=== PATIENT | male | born 1970 | race Caucasian/White ===

== ENCOUNTER → 2018-07-26 | Outpatient (CLI) | payer BC ==
[2018-07-26 12:13] LABS: ALT 64 U/L (21-72); AST 59 U/L (17-59); Albumin 4.7 g/dL (3.5-5.0); Albumin/Globulin Ratio 1.5; Alkaline Phosphatase 79 U/L (38-126); Amylase 32 U/L (30-110); Anion Gap 7 mmol/L; Blood Urea Nitrogen 16 mg/dL (9-20); Carbon Dioxide 29 mmol/L (22-30); Chloride 102 mmol/L (98-107); Creatine Kinase 236 U/L (55-170); Globulin 3.2 g/dL; Glucose 96 mg/dL (74-99); Lipase 54 U/L (23-300); Potassium 4.5 mmol/L (3.5-5.1); Sodium 138 mmol/L (137-145); Total Bilirubin 1.2 mg/dL (0.2-1.3); Total Protein 7.9 g/dL (6.3-8.2)
[2018-07-26 12:15] LABS: Basophils # (A) 0.1 k/uL (0-0.2); Basophils % (A) 1 %; Eosinophils # (A) 0.4 k/uL (0-0.7); Eosinophils % (A) 5 %; HGB 16.4 gm/dL (13.0-17.5); Lymphocytes # (A) 1.6 k/uL (1.0-4.8); Lymphocytes % (A) 21 %; MCH 30.7 pg (25.0-35.0); MCHC 33.4 g/dL (31.0-37.0); MCV 91.9 fL (80.0-100.0); Mean Platelet Volume 7.5; Monocytes # (A) 0.6 k/uL (0-1.0); Monocytes % (A) 8 %; Neutrophils # (A) 5.1 k/uL (1.3-7.7); Neutrophils % (A) 65 %; Platelet Count 201 k/uL (150-450); RBC 5.32 m/uL (4.30-5.90); RDW 13.4 % (11.5-15.5); WBC 7.8 k/uL (3.8-10.6)
[2018-07-26 12:38] LABS: Creatine Kinase MB 2.4 ng/mL (0.0-2.4); Troponin I <0.012 ng/mL (0.000-0.034)
[2018-07-26 14:38] LABS: Erythrocyte Sedimentation Rate 10 mm/hr (0-15)
[2018-07-27 05:30] LABS: Mycoplasma IgM Antibody 0.9 INDEX (<=0.90)
== END | disposition home or self-care (01) ==
LOC: LABWHC1 11:15
PROVIDERS: ATTEND Physician Assistant
DX: R10.9 Unspecified abdominal pain (principal); R07.89 Other chest pain
CPT/HCPCS: 36415; 80053; 82150; 82550; 82553; 83690; 84484; 85025; 85652; 86738

== ENCOUNTER → 2018-08-17 | Outpatient (CLI) | payer BC ==
--- NOTE | 2018-08-17 12:14 | P.STRESS ---
- Stress Test Note Stress Test Results/Findings: Exam Performed: stress test Exam Date: 08/17/18 Reason for Exam: CHEST PAIN, FATIGUE Height: 5 ft 10 in Weight: 103.419 kg Protocol: MARIO Stage: IV Duration of Exercise: 9:41 Resting Heart Rate: 77 Resting Blood Pressure: 123/82 Maximum Achieved Heart Rate: 155 Maximum Achieved Blood Pressure: 188/75 85% PMHR: 145 100% PMHR: 170 METS: 11.3 Technologist Comment: Stress Test Results/Findings: This is a 48-year-old gentleman with a hypertension, smoking, family history of ischemic heart disease being evaluated for symptoms of chest pain and shortness of breath and also palpitations.. Stress data: Baseline EKG showed a sinus rhythm with normal RI interval and QRS duration. Blood pressure at rest is 123/82 with pulse rate of 77. Patient awoke on the Mario protocol for 9 minutes and 41 seconds achieving a maximal heart rate of 155 with a blood pressure 179/64. EKGs taken during and after the exercise did not reveal any significant changes from the baseline occasional PVCs continued. Final impression: #1. Negative stress test #2 patient did not express any chest pain #3. Occasional PVCs were noted. #4. Patient exercise capacity is good
--- NOTE | 2018-08-20 17:26 | EST ---
Stress Test Results/Findings: Exam Performed: stress test Exam Date: 08/17/18 Reason for Exam: CHEST PAIN, FATIGUE Height: 5 ft 10 in Weight: 103.419 kg Protocol: MARIO Stage: IV Duration of Exercise: 9:41 Resting Heart Rate: 77 Resting Blood Pressure: 123/82 Maximum Achieved Heart Rate: 155 Maximum Achieved Blood Pressure: 188/75 85% PMHR: 145 100% PMHR: 170 METS: 11.3 Technologist Comment: Stress Test Results/Findings: This is a 48-year-old gentleman with a hypertension, smoking, family history of ischemic heart disease being evaluated for symptoms of chest pain and shortness of breath and also palpitations.. Stress data: Baseline EKG showed a sinus rhythm with normal ND interval and QRS duration. Blood pressure at rest is 123/82 with pulse rate of 77. Patient awoke on the Mario protocol for 9 minutes and 41 seconds achieving a maximal heart rate of 155 with a blood pressure 179/64. EKGs taken during and after the exercise did not reveal any significant changes from the baseline occasional PVCs continued. Final impression: #1. Negative stress test #2 patient did not express any chest pain #3. Occasional PVCs were noted. #4. Patient exercise capacity is good MTDD
== END ==
LOC: RADNMMAIN 08:36
PROVIDERS: ATTEND Physician Assistant
DX: R53.83 Other fatigue (principal)
CPT/HCPCS: 93017

== ENCOUNTER → 2019-09-17 | Outpatient (CLI) | payer BC | END | disposition home or self-care (01) | LOC: LABWHC1 07:26 | PROVIDERS: ATTEND Family Medicine | DX: R50.9 Fever, unspecified (principal); R06.02 Shortness of breath; R43.9 Unspecified disturbances of smell and taste; Z20.828 Contact with and (suspected) exposure to other viral communicable diseases | CPT/HCPCS: 87635 ==

== ENCOUNTER → 2020-02-07 | Outpatient (CLI) | payer BC ==
--- NOTE | 2020-02-07 12:25 | CT ---
EXAMINATION TYPE: CT abdomen wo con DATE OF EXAM: 02/07/2020 HISTORY: wt loss, dysphagia, abdominal pain. CT DLP: 555.3 mGycm. Automated Exposure Control for Dose Reduction was Utilized. TECHNIQUE: CT scan of the abdomen is performed with oral and without IV contrast. COMPARISON: NONE FINDINGS: Within the limitations of a non-contrast study, the following observations are made. LUNG BASES: No significant abnormality is appreciated. LIVER/GB: Contracted gallbladder. Visualized liver is slightly hypodense relative to spleen consisten t with mild diffuse fatty infiltration. PANCREAS: No significant abnormality is seen. SPLEEN: Splenomegaly present measuring 16.1 cm long axis segment 14. ADRENALS: No significant abnormality is seen. KIDNEYS: There is 2 mm nonobstructing left renal calculus mid to lower pole level coronal image 71. N o hydronephrosis or obstructing ureteral calculi identified bilaterally. BOWEL: Oral contrast only reaches distal jejunal loops in the left abdomen. No suspicious small or la rge bowel dilatation. Terminal ileum felt within normal limits coronal Image 55. Appendix not seen an d presumed surgically absent. LYMPH NODES: No greater than 1cm abdominal lymph nodes are appreciated. OSSEOUS STRUCTURES: Bilateral pars defect L5 level. No significant spondylolisthesis. Moderate disc s pace narrowing at this level is partially imaged. Facet arthropathy lower lumbar spine. OTHER: Tiny fat-containing umbilical hernia. IMPRESSION: No acute findings are evident. Splenomegaly noted and may warrant further nonurgent clini shellie workup.
== END | disposition home or self-care (01) ==
LOC: RADCTMAIN 11:23
PROVIDERS: ATTEND Family Medicine
DX: R16.1 Splenomegaly, not elsewhere classified (principal)
CPT/HCPCS: 74150

== ENCOUNTER 2020-03-02 10:29 | Day surgery (SDC) | payer BC ==
[2020-02-27 14:48] VITALS: BMI 30.8
[~2020-03-02 10:29] MED LIST: LACTATED RINGERS 1,000 ML IV SCH
[2020-03-02 11:18] VITALS: TEMP 97.9
[2020-03-02] MEDS ORDERED: PROPOFOL 10 MG/ML 20 ML VIAL IV ONE (12:01)
[2020-03-02] MEDS ORDERED: LIDOCAINE 1% INJ 10MG/ML (20 ML MDV) ONE (12:01)
--- NOTE | 2020-03-02 12:54 | P.PCN ---
Date of Procedure: 03/02/20 Description of Procedure: Brief history: Patient is a pleasant 49-year-old male presenting for EGD and colonoscopy for evaluation of left upper quadrant pain and diarrhea. Prior endoscopic history. To 3 months of left upper quadrant pain with associated decreased oral intake, weight loss and nausea. He also reports loose frequent bowel movements. Computed tomography scan significant for splenomegaly on 02/07/2020 Procedure performed: Esophagogastroduodenoscopy with biopsy Colonoscopy with biopsy and polypectomy Estimated blood loss: Minimal. Preoperative diagnosis: Left upper quadrant pain, diarrhea, altered bowel function, unintentional weight loss, no prior endoscopic history Anesthesia: MAC Procedure: After informed consent was obtained from the patient was brought into the endoscopy unit and IV sedation was administered by anesthesia under continuous monitoring. Initially upper endoscopy was done. The Olympus GF 190 video endoscope was inserted into the mouth and esophagus intubated without any difficulty and was gradually advanced into the stomach and duodenum and carefully examined. The bulb and second part of the duodenum appeared normal, with biopsies taken to rule out celiac disease. The scope was then withdrawn into the stomach adequately insufflated with air and upon careful examination the antrum and body, cardia and fundus appeared normal, except for some mild punctate erythema and body suggestive of mild gastritis with biopsies taken. The scope was then withdrawn into the esophagus. The GE junction was located at 40 cm to the incisors and biopsied to rule out reflux esophagitis. It appeared regular with no erythema erosions or ulcerations. Rest of the esophagus appeared normal. Patient tolerated the procedure well. At this time the patient continued to remain sedation. Initial digital rectal examination was normal. Olympus CF 190 video colonoscope was then inserted into the rectum and gradually advanced to the cecum without any difficulty. Careful examination was performed as the scope was gradually being withdrawn. The prep was excellent. The cecum, ascending colon, transverse colon, descending colon, sigmoid colon and rectum appeared normal, with random biopsies taken of the right and left colon the setting of diarrhea and altered bowel function. Terminal ileum was intubated and appeared normal with biopsies take. Low-grade internal hemorrhoids were seen. Diminutive polyps measuring 2-3 mm in size were removed from the transverse colon, splenic flexure and descending colon Retroflexion was performed in the rectum and no lesions were noted. Patient tolerated the procedure well. Impression: 1. Mild gastritis. Biopsies taken of the duodenum, antrum and body and GE junction. 2. 3 diminutive polyps removed from the transverse colon, splenic flexure and descending colon with cold forcep polypectomy. Otherwise normal-appearing colon from rectum to cecum with random biopsies taken of the right and left colon as well as a normal-appearing terminal ileum due to diarrhea and altered bowel fun ction. Internal hemorrhoids. Recommendations: Findings of this examination were discussed with the patient as well as his . Okay to resume diet. Okay to resume medications. With pathology from biopsies and polypectomy. Recommend repeat colonoscopy in 5 years for screening for malignant neoplasm of the colon in the setting of polypectomy pending pathology from polypectomies. Patient should follow-up in the GI clinic in the next 1-2 weeks for results of biopsies and further management.
[2020-03-02 13:33] VITALS: BP 132/76; PULSE 70; RESP 20
== END 2020-03-02 13:36 | disposition home or self-care (01) ==
LOC: ORWHC2ENDO 10:29
PROVIDERS: ATTEND Internal Medicine
DX: D12.3 Benign neoplasm of transverse colon (principal); K63.5 Polyp of colon; D12.4 Benign neoplasm of descending colon; K29.50 Unspecified chronic gastritis without bleeding; K22.70 Barrett's esophagus without dysplasia; R63.4 Abnormal weight loss; K64.8 Other hemorrhoids; Z98.890 Other specified postprocedural states; F17.210 Nicotine dependence, cigarettes, uncomplicated; R16.1 Splenomegaly, not elsewhere classified; Z88.1 Allergy status to other antibiotic agents
CPT/HCPCS: 88305; 45380; 43239; J2001; J2704

== ENCOUNTER 2020-03-23 11:22 | Emergency (ER) | payer BC, OTHER ==
[2020-03-23 11:28] VITALS: TEMP 98.8
[2020-03-23] MEDS ORDERED: IPRATROPIUM-ALBUTEROL 3 ML NEB INHALATION STA ×2 (12:19→13:42)
[2020-03-23 12:21] LABS: Basophils # (A) 0.1 k/uL (0-0.2); Basophils % (A) 1 %; Eosinophils # (A) 0.4 k/uL (0-0.7); Eosinophils % (A) 5 %; HCT 49.4 % (39.0-53.0); HGB 17.3 gm/dL (13.0-17.5); Lymphocytes # (A) 1.9 k/uL (1.0-4.8); Lymphocytes % (A) 24 %; MCH 32.8 pg (25.0-35.0); MCHC 35.1 g/dL (31.0-37.0); MCV 93.3 fL (80.0-100.0); Mean Platelet Volume 8.4; Monocytes # (A) 0.4 k/uL (0-1.0); Monocytes % (A) 5 %; Neutrophils # (A) 4.8 k/uL (1.3-7.7); Neutrophils % (A) 63 %; Platelet Count 175 k/uL (150-450); RBC 5.29 m/uL (4.30-5.90); RDW 12.6 % (11.5-15.5); WBC 7.7 k/uL (3.8-10.6)
[2020-03-23 12:33] LABS: ALT 83 U/L (4-49); AST 59 U/L (17-59); African American GFR (CKD) >90 (>60 ml/min/1.73 sqM); Albumin 4.3 g/dL (3.5-5.0); Alkaline Phosphatase 72 U/L (38-126); Anion Gap 7 mmol/L; Blood Urea Nitrogen 16 mg/dL (9-20); Calcium 9.5 mg/dL (8.4-10.2); Carbon Dioxide 26 mmol/L (22-30); Chloride 104 mmol/L (98-107); Glucose 86 mg/dL (74-99); Non-African American GFR(CKD) >90 (>60 ml/min/1.73 sqM); Potassium 4.2 mmol/L (3.5-5.1); Sodium 137 mmol/L (137-145); Total Bilirubin 1.2 mg/dL (0.2-1.3); Total Protein 7.3 g/dL (6.3-8.2)
--- NOTE | 2020-03-23 12:38 | XR ---
EXAMINATION TYPE: XR chest 2V DATE OF EXAM: 03/23/2020 COMPARISON: NONE HISTORY: Shortness of breath TECHNIQUE: Frontal and lateral views of the chest are obtained. FINDINGS: Scattered senescent parenchymal changes noted. Hyperinflation compatible with COPD. No evidence for infiltrate. No evidence for atelectasis. Heart size is stable. Mediastinal structures are stable and grossly unremarkable. No evidence for hilar prominence. Degenerative changes dorsal spine. IMPRESSION: 1. No evidence for acute pulmonary disease.
[2020-03-23 12:48] LABS: INR 0.9 (<1.2); Partial Thromboplastin Time 25.1 sec (22.0-30.0); Prothrombin Time 9.4 sec (9.0-12.0)
--- NOTE | 2020-03-23 12:55 | ED ---
General Adult HPI - General Chief complaint: Shortness of Breath Stated complaint: SOB Time Seen by Provider: 03/23/20 11:47 Source: patient, RN notes reviewed Mode of arrival: ambulatory Limitations: no limitations - History of Present Illness Initial comments: 49-year-old male with a past medical history of shoulder surgery on Monday presents to the emergency room for a chief complaint of shortness of breath. Patient reports ever since his shoulder surgery 4 days ago he has had wheezing and a cough that has caused him to be short of breath. He does have slight mucus production with this cough. He tested negative for Covid on Monday before the surgery. He has not had any fevers. He does not have a history of asthma or COPD. He does not have any chest pain. Patient has no other complaints at this time including chest pain, abdominal pain, nausea or vomiting, headache, or visual changes. - Related Data Home Medications Medication Instructions Recorded Confirmed Acetaminophen Tab [Tylenol Tab] 1,000 mg PO Q8H PRN 03/23/20 03/23/20 Aspirin EC [Ecotrin Low Dose] 81 mg PO DAILY 03/23/20 03/23/20 Gabapentin 300 mg PO Q8H 03/23/20 03/23/20 Meloxicam [Mobic] 7.5 mg PO DAILY 03/23/20 03/23/20 oxyCODONE HCL [Roxicodone] 5 mg PO Q6H PRN 03/23/20 03/23/20 traMADol HCl [Ultram] 50 mg PO Q6H PRN 03/23/20 03/23/20 Previous Rx's Medication Instructions Recorded Albuterol Inhaler [Ventolin Hfa 2 puff INHALATION RT-QID PRN #1 03/23/20 Inhaler] inhaler Amoxicillin/Potassium Clav 1 tab PO Q12HR #20 tab 03/23/20 [Augmentin 875-125 Tablet] Levofloxacin [Levaquin] 750 mg PO DAILY 10 Days #10 tab 03/23/20 Allergies Allergy/AdvReac Type Severity Reaction Status Date / Time erythromycin base Allergy throat Verified 03/23/20 12:46 Swelling Review of Systems ROS Statement: Those systems with pertinent positive or pertinent negative responses have been documented in the HPI. ROS Other: All systems not noted in ROS Statement are negative. Past Medical History Additional Past Medical History / Comment(s): past hx of HTN, abdominal pain, diarrhea, enlarged spleen History of Any Multi-Drug Resistant Organisms: None Reported Past Surgical History: Appendectomy Additional Past Surgical History / Comment(s): EGD Past Anesthesia/Blood Transfusion Reactions: No Reported Reaction Past Psychological History: No Psychological Hx Reported Smoking Status: Current every day smoker Past Alcohol Use History: None Reported Past Drug Use History: None Reported General Exam Limitations: no limitations General appearance: alert, in no apparent distress Head exam: Present: atraumatic, normocephalic, normal inspection Eye exam: Present: normal appearance, PERRL, EOMI. Absent: scleral icterus, conjunctival injection, periorbital swelling ENT exam: Present: normal exam, mucous membranes moist Neck exam: Present: normal inspection, full ROM. Absent: tenderness, meningismus, lymphadenopathy Respiratory exam: Present: wheezes (slight wheezing at lung bases). Absent: respiratory distress, rales, rhonchi, stridor Cardiovascular Exam: Present: regular rate, normal rhythm, normal heart sounds. Absent: systolic murmur, diastolic murmur, rubs, gallop, clicks GI/Abdominal exam: Present: soft, normal bowel sounds. Absent: distended, tenderness, guarding, rebound, rigid Neurological exam: Present: alert Course Vital Signs 03/23/20 03/23/20 03/23/20 11:24 12:42 12:52 Temperature 98.8 F Pulse Rate 83 78 82 Respiratory 18 Rate Blood Pressure 182/92 O2 Sat by Pulse 95 Oximetry 03/23/20 03/23/20 03/23/20 14:28 14:31 14:41 Temperature Pulse Rate 80 84 87 Respiratory 18 Rate Blood Pressure 151/103 O2 Sat by Pulse 98 Oximetry EKG Findings - EKG Comments: EKG Findings:: Normal sinus rhythm, ventricular rate 79, [place] int 144, QTc 442 Medical Decision Making - Medical Decision Making Vitals are stable. Patient 95-98% on room air. Heart rate is normal. Patient is slightly hypertensive however this is likely secondary to pain as he is complaining of shoulder pain throughout his stay. CBC CMP unremarkable. Troponin negative. EKG nonischemic. Rodriguez virus again is not detected. Chest CTA showed no PE however there is a right lower lobe density that may reflect developing infiltrate. This does correlate with patient's cough as well as wheezing noted on exam. At this time patient is well-appearing. He is not in any respiratory distress. He was given 2 nebs which did help with his symptoms. I did discuss inpatient versus outpatient management given patient was recently intubated. Patient and his both prefer outpatient treatment given this is in the pandemic with increasing numbers and they would feel safer at home. Patient will be covered with Levaquin and Augmentin. I did discuss following up with his doctor. However if he has any worsening symptoms he is to return to the emergency room for admission.I discussed this case with attending Dr. Page who agrees with this assessment and treatment plan. - Lab Data Result diagrams: 03/23/20 12:04 03/23/20 12:04 Lab Results 03/23/20 03/23/20 03/23/20 Range/Units 12:04 12:04 12:04 WBC 7.7 (3.8-10.6) k/uL RBC 5.29 (4.30-5.90) m/uL Hgb 17.3 (13.0-17.5) gm/dL Hct 49.4 (39.0-53.0) % MCV 93.3 (80.0-100.0) fL MCH 32.8 (25.0-35.0) pg MCHC 35.1 (31.0-37.0) g/dL RDW 12.6 (11.5-15.5) % Plt Count 175 (150-450) k/uL MPV 8.4 Neutrophils % 63 % Lymphocytes % 24 % Monocytes % 5 % Eosinophils % 5 % Basophils % 1 % Neutrophils # 4.8 (1.3-7.7) k/uL Lymphocytes # 1.9 (1.0-4.8) k/uL Monocytes # 0.4 (0-1.0) k/uL Eosinophils # 0.4 (0-0.7) k/uL Basophils # 0.1 (0-0.2) k/uL PT 9.4 (9.0-12.0) sec INR 0.9 (<1.2) APTT 25.1 (22.0-30.0) sec Sodium 137 (137-145) mmol/L Potassium 4.2 (3.5-5.1) mmol/L Chloride 104 (98-107) mmol/L Carbon Dioxide 26 (22-30) mmol/L Anion Gap 7 mmol/L BUN 16 (9-20) mg/dL Creatinine 0.84 (0.66-1.25) mg/dL Est GFR (CKD-EPI)AfAm >90 (>60 ml/min/1.73 sqM) Est GFR (CKD-EPI)NonAf >90 (>60 ml/min/1.73 sqM) Glucose 86 (74-99) mg/dL Plasma Lactic Acid Austin (0.7-2.0) mmol/L Calcium 9.5 (8.4-10.2) mg/dL Total Bilirubin 1.2 (0.2-1.3) mg/dL AST 59 (17-59) U/L ALT 83 H (4-49) U/L Alkaline Phosphatase 72 (38-126) U/L Troponin I (0.000-0.034) ng/mL NT-Pro-B Natriuret Pep pg/mL Total Protein 7.3 (6.3-8.2) g/dL Albumin 4.3 (3.5-5.0) g/dL Coronavirus (PCR) (Not Detectd) 03/23/20 03/23/20 03/23/20 Range/Units 12:04 12:04 12:04 WBC (3.8-10.6) k/uL RBC (4.30-5.90) m/uL Hgb (13.0-17.5) gm/dL Hct (39.0-53.0) % MCV (80.0-100.0) fL MCH (25.0-35.0) pg MCHC (31.0-37.0) g/dL RDW (11.5-15.5) % Plt Count (150-450) k/uL MPV Neutrophils % % Lymphocytes % % Monocytes % % Eosinophils % % Basophils % % Neutrophils # (1.3-7.7) k/uL Lymphocytes # (1.0-4.8) k/uL Monocytes # (0-1.0) k/uL Eosinophils # (0-0.7) k/uL Basophils # (0-0.2) k/uL PT (9.0-12.0) sec INR (<1.2) APTT (22.0-30.0) sec Sodium (137-145) mmol/L Potassium (3.5-5.1) mmol/L Chloride (98-107) mmol/L Carbon Dioxide (22-30) mmol/L Anion Gap mmol/L BUN (9-20) mg/dL Creatinine (0.66-1.25) mg/dL Est GFR (CKD-EPI)AfAm (>60 ml/min/1.73 sqM) Est GFR (CKD-EPI)NonAf (>60 ml/min/1.73 sqM) Glucose (74-99) mg/dL Plasma Lactic Acid Austin 0.7 (0.7-2.0) mmol/L Calcium (8.4-10.2) mg/dL Total Bilirubin (0.2-1.3) mg/dL AST (17-59) U/L ALT (4-49) U/L Alkaline Phosphatase (38-126) U/L Troponin I <0.012 (0.000-0.034) ng/mL NT-Pro-B Natriuret Pep 329 pg/mL Total Protein (6.3-8.2) g/dL Albumin (3.5-5.0) g/dL Coronavirus (PCR) (Not Detectd) 03/23/20 Range/Units 12:39 WBC (3.8-10.6) k/uL RBC (4.30-5.90) m/uL Hgb (13.0-17.5) gm/dL Hct (39.0-53.0) % MCV (80.0-100.0) fL MCH (25.0-35.0) pg MCHC (31.0-37.0) g/dL RDW (11.5-15.5) % Plt Count (150-450) k/uL MPV Neutrophils % % Lymphocytes % % Monocytes % % Eosinophils % % Basophils % % Neutrophils # (1.3-7.7) k/uL Lymphocytes # (1.0-4.8) k/uL Monocytes # (0-1.0) k/uL Eosinophils # (0-0.7) k/uL Basophils # (0-0.2) k/uL PT (9.0-12.0) sec INR (<1.2) APTT (22.0-30.0) sec Sodium (137-145) mmol/L Potassium (3.5-5.1) mmol/L Chloride (98-107) mmol/L Carbon Dioxide (22-30) mmol/L Anion Gap mmol/L BUN (9-20) mg/dL Creatinine (0.66-1.25) mg/dL Est GFR (CKD-EPI)AfAm (>60 ml/min/1.73 sqM) Est GFR (CKD-EPI)NonAf (>60 ml/min/1.73 sqM) Glucose (74-99) mg/dL Plasma Lactic Acid Austin (0.7-2.0) mmol/L Calcium (8.4-10.2) mg/dL Total Bilirubin (0.2-1.3) mg/dL AST (17-59) U/L ALT (4-49) U/L Alkaline Phosphatase (38-126) U/L Troponin I (0.000-0.034) ng/mL NT-Pro-B Natriuret Pep pg/mL Total Protein (6.3-8.2) g/dL Albumin (3.5-5.0) g/dL Coronavirus (PCR) Not Detected (Not Detectd) Disposition Clinical Impression: Acute pneumonia Disposition: HOME SELF-CARE Condition: Good Instructions (If sedation given, give patient instructions): Bacterial Pneumonia (ED) Additional Instructions: Please take antibiotic as directed. If you're having worsening symptoms he needs to return to the emergency room. Otherwise follow-up with your doctor in one to 2 days. Prescriptions: Amoxicillin/Potassium Clav [Augmentin 875-125 Tablet] 1 tab PO Q12HR #20 tab Levofloxacin [Levaquin] 750 mg PO DAILY 10 Days #10 tab Albuterol Inhaler [Ventolin Hfa Inhaler] 2 puff INHALATION RT-QID PRN #1 inhaler PRN Reason: Shortness Of Breath Is patient prescribed a controlled substance at d/c from ED?: No Referrals: Geo Allen MD [Primary Care Provider] - 1-2 days Time of Disposition: 15:13
--- NOTE | 2020-03-23 14:24 | CT ---
EXAMINATION TYPE: CT chest angio for PE DATE OF EXAM: 03/23/2020 COMPARISON: None HISTORY: SOB, post op shoulder surgery [address] DLP: 962.3 mGycm CONTRAST: CT chest with contrast and 3D reconstruction with MIP imaging is performed with IV Contrast, patient injected with 80 mL of Isovue 300. Contrast-enhanced CT of the chest was performed through the course of the pulmonary arteries with dimitrios g and mediastinal window settings submitted. 3D reconstruction with MIP imaging was also performed. PULMONARY ARTERIES: The pulmonary arteries and their major tributaries are patent. I do not see luis dence for sizable filling defect to suggest pulmonary embolic process. LUNGS: Right lower lobe groundglass density may reflect developing infiltrate. Correlate clinically. No evidence for atelectasis. No pulmonary nodule or mass is detected. No pleural effusion. MEDIASTINUM: Thoracic aorta is of normal caliber,however, evaluation is limited given timing of the contrast bolus. If there is concern for thoracic aortic pathology consider MARIELLE. Correlate clinicall y . The heart is not enlarged. No evidence for mediastinal mass. No mediastinal lymph nodes greater than 1cm. HILAR STRUCTURES: No evidence for mass. No hilar lymph nodes greater than 1 cm. UPPER ABDOMEN: No significant abnormality is seen. IMPRESSION: 1. No evidence for Pulmonary embolism at this time. 2.Right lower lobe groundglass density may reflect developing infiltrate. Correlate clinically.
[2020-03-23] MEDS ORDERED: HYDROmorphone 0.5 MG/0.5 ML SYRINGE IVP STA (14:27)
[2020-03-23] MEDS ORDERED: LEVOFLOXACIN 750 MG TAB PO STA (15:08)
[2020-03-23] MEDS ORDERED: AMOXIC-POT CLAV 875MG STARTER PACK 2 TAB BTL PO STA (15:09)
[2020-03-23 16:12] VITALS: BP 152/88; PULSE 79; RESP 19
== END 2020-03-23 16:18 | disposition home or self-care (01) ==
LOC: EC 11:22
DX: J18.9 Pneumonia, unspecified organism (principal); I10 Essential (primary) hypertension; F17.200 Nicotine dependence, unspecified, uncomplicated; Z88.1 Allergy status to other antibiotic agents; Z20.828 Contact with and (suspected) exposure to other viral communicable diseases
CPT/HCPCS: 36415; 94640 ×2; 93005; 83880; 80053; 83605; 84484; 85025; 85610; 85730; 87635; 71046; 71275; 99285; 96374; J1170; Q9967

== ENCOUNTER → 2020-05-06 | Outpatient (CLI) | payer BC | END | disposition home or self-care (01) | LOC: LABWHC1 13:08 | PROVIDERS: ATTEND Family Medicine | DX: Z20.828 Contact with and (suspected) exposure to other viral communicable diseases (principal) | CPT/HCPCS: U0003; C9803 ==

== ENCOUNTER → 2020-05-12 | Outpatient (CLI) | payer BC | END | disposition home or self-care (01) | LOC: LABWHC1 12:20 | PROVIDERS: ATTEND Family Medicine | DX: R50.9 Fever, unspecified (principal); R05 Cough; R09.81 Nasal congestion | CPT/HCPCS: U0003; C9803 ==

== ENCOUNTER → 2021-07-02 | Outpatient (CLI) | payer BC ==
--- NOTE | 2021-07-02 21:22 | CT ---
EXAMINATION TYPE: CT thoracic spine wo con DATE OF EXAM: 07/02/2021 COMPARISON: CT chest 03/23/2020 HISTORY: Thoracic back pain CT DLP: 1694.90 mGycm Automated exposure control for dose reduction was used. Helical imaging through the thoracic spine. C oronal sagittal reconstructions performed. FINDINGS: There is a spinal curvature present. Multilevel spondylosis is present. There is no evident spinal st enosis or sizable disc herniation. L1 vertebral body shows a right transverse process fracture which is nondisplaced. Lumbar vertebral bodies are intact. There is no significant foraminal encroachment. Degenerative disc change noted the lower cervical spine, C6-7. IMPRESSION: DEGENERATIVE DISC DISEASE, SPINAL CURVATURE. TRANSVERSE PROCESS FRACTURE ON THE RIGHT AT L1.
--- NOTE | 2021-07-02 21:34 | CT ---
EXAMINATION TYPE: CT lumbar spine wo con DATE OF EXAM: 07/02/2021 COMPARISON: Plain film 06/21/2021 HISTORY: Lumbar pain CT DLP: 1798.00 mGycm Automated exposure control for dose reduction was used. An unenhanced CT of the lumbar spine was performed. Bone and soft tissue window settings are submitt ed as well as coronal and sagittal reconstructions. FINDINGS: L1-L2: Normal disc space height. No disc herniation protrusion or central stenosis. No facet joint arthropathy. No evidence for foraminal encroachment. L2-L3: Normal disc space height. No disc herniation protrusion or central stenosis. No facet joint arthropathy. No evidence for foraminal encroachment. L3-L4: Posterior disc bulge causes mild anterior mass effect on the thecal sac. L4-L5: Normal disc space height. No disc herniation protrusion or central stenosis. No facet joint arthropathy. No evidence for foraminal encroachment. L5-S1: Loss of disc at L5-S1. Minimal posterior disc bulge, circumferential extension endplate disc c omplex causes bilateral foraminal encroachment. No paraspinal masses are identified. Lumbar segments are intact. Right L1 transverse process shows a n minimally displaced fracture of questionable acuity. Bilateral spondylolysis is present at L5, ther e is a grade 1 anterolisthesis L5-S1. Lumbar vertebral bodies show preserved height and alignment. No significant spinal stenosis. There is some ankylosis of the sacroiliac joints, hypertrophic change. Bilateral spondylolysis L5 with anterolisthesis, degenerative disc disease. Transverse process fractu re L1 of indeterminate age. Additional findings above.
== END | disposition home or self-care (01) ==
LOC: RADCTMAIN 18:50
PROVIDERS: ATTEND Physical Medicine & Rehabilitation
DX: M47.814 Spondylosis without myelopathy or radiculopathy, thoracic region (principal); M41.24 Other idiopathic scoliosis, thoracic region; M51.36 Other intervertebral disc degeneration, lumbar region; M43.06 Spondylolysis, lumbar region; M54.2 Cervicalgia
CPT/HCPCS: 72128; 72131

== ENCOUNTER → 2021-07-22 | Outpatient (CLI) | payer BC ==
--- NOTE | 2021-07-22 14:18 | NM ---
EXAMINATION TYPE: NM bone scan whole body, NM bone SPECT DATE OF EXAM: 07/22/2021 COMPARISON: CT 07/02/2021 HISTORY: Back pain Delayed whole-body scanning was performed following the injection of 24.3 mCi Tc 99m MDP. Images acq uired 4 hours post injection. SPECT images were obtained through the thoracic lumbar spine FINDINGS: Abnormal activity is detected at the site of patient's spinous process fracture at L1 on the right. S oft tissue uptake is within normal limits. Uptake within the maxilla and mandible is likely due to pe riodontal disease. Uptake at the sternoclavicular joints and shoulders, knees, ankles and the, hips i s likely degenerative. IMPRESSION: There is abnormal activity in the site of patient's transverse process fracture at L1 on the right.
== END | disposition home or self-care (01) ==
LOC: RADNMMAIN 08:40
PROVIDERS: ATTEND Physical Medicine & Rehabilitation
DX: M47.814 Spondylosis without myelopathy or radiculopathy, thoracic region (principal); M41.24 Other idiopathic scoliosis, thoracic region; M47.812 Spondylosis without myelopathy or radiculopathy, cervical region; M47.817 Spondylosis without myelopathy or radiculopathy, lumbosacral region; M43.16 Spondylolisthesis, lumbar region
CPT/HCPCS: 78306; 78803; A9503

== ENCOUNTER → 2021-08-06 | Outpatient (CLI) | payer BC ==
--- NOTE | 2021-08-06 13:53 | US ---
EXAMINATION TYPE: US venous doppler duplex LE LT DATE OF EXAM: 08/06/2021 1:31 PM COMPARISON: NONE CLINICAL HISTORY: R79.1 POS D DIMER. SIDE PERFORMED: Left TECHNIQUE: The lower extremity deep venous system is examined utilizing real time linear array sonog geoff with graded compression, doppler sonography and color-flow sonography. VESSELS IMAGED: Common Femoral Vein Deep Femoral Vein Greater Saphenous Vein * Femoral Vein Popliteal Vein Small Saphenous Vein * Proximal Calf Veins (* superficial vessels) Left Leg: Negative for DVT IMPRESSION: 1. Left lower extremity ultrasound negative for deep venous thrombosis.
== END | disposition home or self-care (01) ==
LOC: RADUSWWP 12:47
PROVIDERS: ATTEND Family Medicine
DX: R79.1 Abnormal coagulation profile (principal)

== ENCOUNTER → 2021-09-17 | Outpatient (CLI) | payer BC ==
--- NOTE | 2021-09-17 09:21 | US ---
EXAMINATION TYPE: US abdomen complete DATE OF EXAM: 09/17/2021 COMPARISON: NONE CLINICAL HISTORY: R94.5 ABNORMAL RESULTS OF LIVER FUNCTION STUDIES. elevated lft's, no symptoms, h/o enlarged spleen EXAM MEASUREMENTS: Liver Length: 20.3 cm Gallbladder Wall: 0.3 cm CBD: 0.6 cm Spleen: 15.7 cm Right Kidney: 11.3 x 5.6 x 4.8 cm Left Kidney: 11.7 x 5.1 x 6.2 cm Pancreas: wnl Liver: enlarged and difficult to penetrate Gallbladder: wnl Evidence for sonographic Oleary's sign: no CBD: wnl Spleen: enlarged Right Kidney: wnl Left Kidney: wnl Upper IVC: wnl Abd Aorta: wnl The intrahepatic portion of the IVC and proximal abdominal aorta are within normal limits. There is no evidence of cholelithiasis. Common bile duct is unremarkable. The visualized portions of the hagen creas are homogenous. Kidneys are symmetric and free of hydronephrosis. No renal lesions are seen. IMPRESSION: 1. Hepatomegaly with underlying hepatic steatosis. 2. Splenomegaly.
== END | disposition home or self-care (01) ==
LOC: RADUSWWP 08:51
PROVIDERS: ATTEND Family Medicine
DX: R94.5 Abnormal results of liver function studies (principal); R16.2 Hepatomegaly with splenomegaly, not elsewhere classified
CPT/HCPCS: 76700

== ENCOUNTER → 2021-10-19 | Outpatient (CLI) | payer BC ==
--- NOTE | 2021-10-19 14:39 | P.SLEEP ---
History of Present Illness H&P Date: 10/19/21 This is a 81-year-old male patient was referred to me for evaluation of sleep apnea. The patient is reporting that his hearing tired a lot and sleepy and he snores and he jumps in bed. For that reason he was referred to me. He has lost snoring. He has been feeling excessively fatigued and sleepy during the day. His current [place] score is at 13. The patient goes to bed around 8 PM9 PM and wakes up 3 AM4 AM. On weekends, he sleeps in longer between 10 PM and 7 AM. He thinks that he is averaging around 67 hours of sleep on a daily basis. Nevertheless, he is not rested and he is feeling tired and fatigued. He is a nose breather. He wakes up with a dry mouth. He tries to sleep on his side. He had a shoulder injury which required him to be off work for several months. He underwent shoulder surgery and is currently back to work. He has been feeling somnolent and sleepy yet he does not fall asleep during day-to-day activities. Does not fall asleep while driving. He drinks several beers in the evening. No substance abuse. No alcoholism. No nighttime sleep walking or sleep talking. No anxiety or panic attacks. No shortness of breath or grinding of the teeth. No nocturia. He has gained weight over the years in order of 48 pounds over the past 5 years. He wakes up a few times in the middle of the night and he has no issues in generating sleep again. No sleep paralysis. No hallucinations. No cataplexy. Review of Systems Constitutional: Reports daytime sleepiness, Reports fatigue, Reports weight gain Eyes: denies as per HPI, denies blurred vision, denies bulging eye, denies decreased vision, denies diplopia, denies discharge, denies dry eye, denies irritation, denies itching, denies pain, denies photophobia, denies loss of peripheral vision, denies loss of vision, denies tunnel vision/blind spots Ears: deny: decreased hearing, ear discharge, earache, tinnitus Ears, nose, mouth and throat: Reports as per HPI Breasts: absent: as per HPI, gynecomastia Respiratory: Reports as per HPI, Reports snoring Gastrointestinal: Reports as per HPI Genitourinary: Reports as per HPI Musculoskeletal: Reports as per HPI (Shoulder injury and chronic shoulder pain) Musculoskeletal: absent: ankle pain, ankle stiffness, ankle swelling, as per HPI, elbow pain, elbow stiffness, elbow swelling, foot pain, foot stiffness, foot swelling, hand pain, hand stiffness, hand swelling, hip pain, hip stiff ness, hip swelling, knee pain, knee stiffness, knee swelling, shoulder pain, shoulder stiffness, shoulder swelling, wrist pain, wrist stiffness, wrist swelling Integumentary: Reports as per HPI Neurological: Reports as per HPI Psychiatric: Reports as per HPI Endocrine: Reports as per HPI Hematologic/Lymphatic: Reports as per HPI Allergic/Immunologic: Reports as per HPI Past Medical History Additional Past Medical History / Comment(s): past hx of HTN, hyperlipidemia, shoulder injury, enlarged spleen History of Any Multi-Drug Resistant Organisms: None Reported Past Surgical History: Appendectomy, Orthopedic Surgery (Involving the shoulder) Additional Past Surgical History / Comment(s): EGD Past Anesthesia/Blood Transfusion Reactions: No Reported Reaction Past Psychological History: No Psychological Hx Reported Smoking Status: Current every day smoker Past Alcohol Use History: None Reported Past Drug Use History: None Reported Medications and Allergies Home Medications and Allergies Comment(s): Lisinopril and cholesterol pill among his medication list in addition to Xanax Home Medications Medication Instructions Recorded Confirmed Type Acetaminophen Tab [Tylenol Tab] 1,000 mg PO Q8H PRN 03/23/20 03/23/20 History Albuterol Inhaler [Ventolin Hfa 2 puff INHALATION RT-QID PRN #1 03/23/20 Rx Inhaler] inhaler Amoxicillin/Potassium Clav 1 tab PO Q12HR #20 tab 03/23/20 Rx [Augmentin 875-125 Tablet] Aspirin EC [Ecotrin Low Dose] 81 mg PO DAILY 03/23/20 03/23/20 History Gabapentin 300 mg PO Q8H 03/23/20 03/23/20 History Levofloxacin [Levaquin] 750 mg PO DAILY 10 Days #10 tab 03/23/20 Rx Meloxicam [Mobic] 7.5 mg PO DAILY 03/23/20 03/23/20 History oxyCODONE HCL [Roxicodone] 5 mg PO Q6H PRN 03/23/20 03/23/20 History traMADol HCl [Ultram] 50 mg PO Q6H PRN 03/23/20 03/23/20 History Allergies Allergy/AdvReac Type Severity Reaction Status Date / Time erythromycin base Allergy throat Verified 06/21/21 10:42 Swelling Physical Exam BP is 161/81, pulse is 80, respirations 16, temperature 98.4, saturation 97% on room air, height is 5' 10 and weight is 236 and BMI 33.8. His current a fourth score is at 13. Gen. appearance, comfortable, breathing is nonlabored.The patient appeared well nourished and normally developed. Vital signs as documented. Head exam is unremarkable. No scleral icterus or corneal arcus noted. Neck is without jugular venous distension, thyromegaly, or carotid bruits. Carotid upstrokes are brisk bilaterally. The patient has a Mallampati class IV with significant crowding of posterior pharynx. No overbite. Poor dental conditions. Lungs are clear to auscultation and percussion. Cardiac exam reveals the PMI to be normally sized and situated. Rhythm is regular. First and second heart sounds normal. No murmurs, rubs or gallops. Abdominal exam reveals normal bowel sounds, no masses, no organomegaly and no aortic enlargement. Extremities are nonedematous and both femoral and pedal pulses are normal.Examination of the skin revealed no evidence of significant rashes, suspicious appearing nevi or other concerning lesions.Neurologically, the patient is awake and alert and the patient does not have any focal neurological deficit. Cranial nerves are essentially intact. Assessment and Plan Plan: Chronic hypersomnia on that investigation, consider the possibility of obstructive sleep apnea, current upper scores a 13 Obesity with interval weight gain in the order of 50 pounds over the past 5 years and current BMI is 33.8 Hypertension Hyperlipidemia Chronic anxiety Chronic smoking Plan Encourage weight loss Optimize sleep hygiene measures Patient's functionality is not affected. He feels fatigued and tired during the day. He is still able to perform activities of daily today life and his job requirements efficiently. maintain a regular sleep schedule Proceed with a screening polysomnogram Sleep Note - Sleep Note Sleep Note: Temperature: Pulse Rate: Respiratory Rate: Blood Pressure: SpO2: Height: Weight: BMI: Neck Circumference:
== END | disposition home or self-care (01) ==
LOC: SLEEP 14:01
PROVIDERS: ATTEND Internal Medicine Critical Care Medicine
DX: G47.10 Hypersomnia, unspecified (principal); E66.9 Obesity, unspecified; Z68.33 Body mass index [BMI] 33.0-33.9, adult
CPT/HCPCS: 99211

== ENCOUNTER → 2023-05-29 | Outpatient (CLI) | payer BC ==
--- NOTE | 2023-05-29 09:03 | US ---
EXAMINATION TYPE: US gallbladder DATE OF EXAM: 05/29/2023 COMPARISON: 02/03/23 CLINICAL INDICATION: Male, 53 years old with history of K82.4 CHOLESTEROLOSIS OF GALLBLADDER; GB poly ps TECHNIQUE: Multiple sonographic images of the right upper quadrant are obtained. FINDINGS: EXAM MEASUREMENTS: Liver Length: 18.6 cm Gallbladder Wall: 0.2 cm CBD: 0.2 cm Right Kidney: 11.9x4.8x6.4 cm Pancreas: Tail obscured by overlying bowel gas Liver: enlarged Gallbladder: Polyps measuring up to 0.5 cm, comet tail artifact in GB wall ? Adenomyomatosis? Evidence for sonographic Oleary's sign: No CBD: wnl Right Kidney: No hydronephrosis or masses seen exam limited by bowel gas IMPRESSION: 1. Gallbladder polyps measuring up to 5 mm continued surveillance recommended with ultrasound imagin g in 6 months. 2. Findings suggestive of gallbladder wall adenomyomatosis.
== END | disposition home or self-care (01) ==
LOC: RADUSWWP 07:00
PROVIDERS: ATTEND Family Medicine
DX: K82.4 Cholesterolosis of gallbladder (principal)
CPT/HCPCS: 76705

== ENCOUNTER 2023-06-13 07:13 | Observation (INO) | payer BC ==
--- NOTE | 2023-06-13 07:15 | ED ---
General Adult HPI - General Stated complaint: chest pain Time Seen by Provider: 06/13/23 07:15 Source: patient, RN notes reviewed, old records reviewed Limitations: no limitations - History of Present Illness Initial comments: 53-year-old male history of hypertension presenting for evaluation of upper ab dominal pain and chest pain. Patient states that he has pain when he takes a deep breath. This has been present for the past several days he had an outpatient ultrasound performed in the past several weeks for upper abdominal pain as well. Patient denies vomiting. Denies fever but states he has had some chills. She has also had a minor cough and nasal congestion. - Related Data Home Medications Medication Instructions Recorded Confirmed ALPRAZolam [Xanax] 0.5 mg PO TID PRN 07/03/22 07/03/22 Rosuvastatin [Crestor] 10 mg PO DAILY 07/03/22 07/03/22 amLODIPine [Norvasc] 5 mg PO DAILY 07/03/22 07/03/22 lisinopriL [Zestril] 20 mg PO DAILY 07/03/22 07/03/22 Previous Rx's Medication Instructions Recorded Metoprolol Succinate (ER) [Toprol 25 mg PO DAILY #30 tab 07/04/22 XL] hydroCHLOROthiazide [Hydrodiuril] 12.5 mg PO DAILY #30 cap 07/04/22 Allergies Allergy/AdvReac Type Severity Reaction Status Date / Time erythromycin base Allergy throat Verified 06/13/23 07:21 Swelling Review of Systems ROS Statement: Those systems with pertinent positive or pertinent negative responses have been documented in the HPI. ROS Other: All systems not noted in ROS Statement are negative. Past Medical History Past Medical History: Hypertension Additional Past Medical History / Comment(s): past hx of HTN, hyperlipidemia, shoulder injury, enlarged spleen History of Any Multi-Drug Resistant Organisms: None Reported Past Surgical History: Appendectomy, Orthopedic Surgery Additional Past Surgical History / Comment(s): EGD Past Anesthesia/Blood Transfusion Reactions: No Reported Reaction Past Psychological History: No Psychological Hx Reported Smoking Status: Never smoker Past Alcohol Use History: None Reported Additional Past Alcohol Use History / Comment(s): smokes 1/2 ppd on and off from age 14 Past Drug Use History: None Reported General Exam General appearance: alert, in no apparent distress Head exam: Present: atraumatic, normocephalic Eye exam: Present: normal appearance, PERRL ENT exam: Present: normal exam Neck exam: Present: normal inspection. Absent: tenderness, meningismus Respiratory exam: Present: normal lung sounds bilaterally. Absent: respiratory distress, wheezes, rales Cardiovascular Exam: Present: regular rate, normal rhythm GI/Abdominal exam: Present: soft. Absent: distended, tenderness Extremities exam: Present: normal inspection, normal capillary refill. Absent: pedal edema Neurological exam: Present: alert, oriented X3, CN II-XII intact. Absent: motor sensory deficit Psychiatric exam: Present: normal affect, normal mood Skin exam: Present: warm Course Vital Signs 06/13/23 06/13/23 07:18 08:00 Temperature 98.7 F Pulse Rate 73 64 Respiratory 16 18 Rate Blood Pressure 161/88 132/82 O2 Sat by Pulse 98 95 Oximetry Medical Decision Making - Medical Decision Making Was pt. sent in by a medical professional or institution (, PA, DATA ENTRY SUPERVISOR, urgent care, hospital, or detention...) When possible be specific @ -No Did you speak to anyone other than the patient for history (EMS, parent, family, police, friend...)? What history was obtained from this source @ -No Did you review nursing and triage notes (agree or disagree)? Why? @ -I reviewed and agree with nursing and triage notes Were old charts reviewed (outside hosp., previous admission, EMS record, old EKG, old radiological studies, urgent care reports/EKG's, detention records)? Report findings @ -No old charts were reviewed Differential Diagnosis (chest pain, altered mental status, abdominal pain women, abdominal pain men, vaginal bleeding, weakness, fever, dyspnea, syncope, headache, dizziness, GI bleed, back pain, seizure, CVA, palpatations, mental health, musculoskeletal)? @ -Not applicable EKG interpreted by me (3pts min.). @Sinus rhythm rate of 66, FL interval 179, QRS duration 103, QTc [address] segment elevation. X-rays interpreted by me (1pt min.). @ -Chest x-ray negative for acute cardiopulmonary findings CT interpreted by me (1pt min.). @ -CT angiography negative for pulmonary embolism U/S interpreted by me (1pt. min.). @Outpatient ultrasound performed 2 weeks prior showing gallbladder polyps What testing was considered but not performed or refused? (CT, X-rays, U/S, labs)? Why? @ -None What meds were considered but not given or refused? Why? @ -None Did you discuss the management of the patient with other professionals (professionals i.e. , PA, DATA ENTRY SUPERVISOR, lab, RT, psych nurse, social work specialist, glycerin supervisor, teacher, patient transport officer, piano case and bench assembler)? Give summary @ -Dr. Allen, will admit Was smoking cessation discussed for >3mins.? @ -No Was critical care preformed (if so, how long)? @ -No Were there social determinants of health that impacted care today? How? (Homelessness, low income, unemployed, alcoholism, drug addiction, transporta tion, low edu. Level, literacy, decrease access to med. care, senior living, rehab)? @ -No Was there de-escalation of care discussed even if they declined (Discuss DNR or withdrawal of care, Hospice)? DNR status @ -No What co-morbidities impacted this encounter? (DM, HTN, Smoking, COPD, CAD, Cancer, CVA, ARF, Chemo, Hep., AIDS, mental health diagnosis, sleep apnea, morbid obesity)? @ -[Hypertension Was patient admitted / discharged? Hospital course, mention meds given and route, prescriptions, significant lab abnormalities, going to OR and other pertinent info. @ -53-year-old male with lower chest and epigastric pain. Patient had an outpatient ultrasound performed 2 weeks prior which showed gallbladder polyps. He had a pleuritic component to his pain and D-dimer was ordered which was positive. This was evaluated with CT angiography which was negative for pulmonary embolism. Patient had normal CBC, normal CMP, negative initial troponin. Patient will be observed with serial cardiac enzymes and telemetry. General surgery will be asked to evaluate the patient for this epigastric pain and history of gallbladder polyps. Undiagnosed new problem with uncertain prognosis? @ -[No Drug Therapy requiring intensive monitoring for toxicity (Heparin, Nitro, Insulin, Cardizem)? @ -No Were any procedures done? @ -No Diagnosis/symptom? @ -Chest pain, epigastric pain, gallbladder polyps Acute, or Chronic, or Acute on Chronic? @ -[Acute Uncomplicated (without systemic symptoms) or Complicated (systemic symptoms)? @ -Complicated Side effects of treatment? @ -[No Exacerbation, Progression, or Severe Exacerbation? @ -No Poses a threat to life or bodily function? How? (Chest pain, [place], SD, pneumonia, PE, COPD, DKA, ARF, appy, cholecystitis, CVA, Diverticulitis, Homicidal, Suicidal, threat to staff... and all critical care pts) @ -[Yes, chest pain, abdominal pain - Lab Data Result diagrams: 06/13/23 07:31 06/13/23 07:31 Lab Results 06/13/23 06/13/23 06/13/23 Range/Units 07:31 07:31 07:31 WBC 5.9 (3.8-10.6) k/uL RBC 4.92 (4.30-5.90) m/uL Hgb 15.5 (13.0-17.5) gm/dL Hct 43.7 (39.0-53.0) % MCV 88.8 (80.0-100.0) fL MCH 31.4 (25.0-35.0) pg MCHC 35.4 (31.0-37.0) g/dL RDW 13.6 (11.5-15.5) % Plt Count 173 (150-450) k/uL MPV 8.9 Neutrophils % 58 % Lymphocytes % 25 % Monocytes % 5 % Eosinophils % 9 % Basophils % 1 % Neutrophils # 3.4 (1.3-7.7) k/uL Lymphocytes # 1.5 (1.0-4.8) k/uL Monocytes # 0.3 (0-1.0) k/uL Eosinophils # 0.5 (0-0.7) k/uL Basophils # 0.1 (0-0.2) k/uL PT 9.8 L (10.0-12.5) sec INR 0.9 (<1.2) APTT 27.0 (22.0-30.0) sec D-Dimer 1.53 H (<0.60) mg/L FEU Sodium 139 (137-145) mmol/L Potassium 4.3 (3.5-5.1) mmol/L Chloride 105 (98-107) mmol/L Carbon Dioxide 26 (22-30) mmol/L Anion Gap 8 mmol/L BUN 19 (9-20) mg/dL Creatinine 0.71 (0.66-1.25) mg/dL Est GFR (CKD-EPI)AfAm >90 (>60 ml/min/1.73 sqM) Est GFR (CKD-EPI)NonAf >90 (>60 ml/min/1.73 sqM) Glucose 121 H (74-99) mg/dL Calcium 9.4 (8.4-10.2) mg/dL Magnesium 2.2 (1.6-2.3) mg/dL Total Bilirubin 1.4 H (0.2-1.3) mg/dL AST 56 (17-59) U/L ALT 56 H (4-49) U/L Alkaline Phosphatase 92 (38-126) U/L Troponin I (0.000-0.034) ng/mL NT-Pro-B Natriuret Pep 52 pg/mL Total Protein 7.9 (6.3-8.2) g/dL Albumin 4.5 (3.5-5.0) g/dL Lipase 65 (23-300) U/L Influenza Type A (PCR) (Not Detectd) Influenza Type B (PCR) (Not Detectd) RSV (PCR) (Not Detectd) SARS-CoV-2 (PCR) (Not Detectd) 06/13/23 06/13/23 Range/Units 07:31 07:31 WBC (3.8-10.6) k/uL RBC (4.30-5.90) m/uL Hgb (13.0-17.5) gm/dL Hct (39.0-53.0) % MCV (80.0-100.0) fL MCH (25.0-35.0) pg MCHC (31.0-37.0) g/dL RDW (11.5-15.5) % Plt Count (150-450) k/uL MPV Neutrophils % % Lymphocytes % % Monocytes % % Eosinophils % % Basophils % % Neutrophils # (1.3-7.7) k/uL Lymphocytes # (1.0-4.8) k/uL Monocytes # (0-1.0) k/uL Eosinophils # (0-0.7) k/uL Basophils # (0-0.2) k/uL PT (10.0-12.5) sec INR (<1.2) APTT (22.0-30.0) sec D-Dimer (<0.60) mg/L FEU Sodium (137-145) mmol/L Potassium (3.5-5.1) mmol/L Chloride (98-107) mmol/L Carbon Dioxide (22-30) mmol/L Anion Gap mmol/L BUN (9-20) mg/dL Creatinine (0.66-1.25) mg/dL Est GFR (CKD-EPI)AfAm (>60 ml/min/1.73 sqM) Est GFR (CKD-EPI)NonAf (>60 ml/min/1.73 sqM) Glucose (74-99) mg/dL Calcium (8.4-10.2) mg/dL Magnesium (1.6-2.3) mg/dL Total Bilirubin (0.2-1.3) mg/dL AST (17-59) U/L ALT (4-49) U/L Alkaline Phosphatase (38-126) U/L Troponin I <0.012 (0.000-0.034) ng/mL NT-Pro-B Natriuret Pep pg/mL Total Protein (6.3-8.2) g/dL Albumin (3.5-5.0) g/dL Lipase (23-300) U/L Influenza Type A (PCR) Not Detected (Not Detectd) Influenza Type B (PCR) Not Detected (Not Detectd) RSV (PCR) Not Detected (Not Detectd) SARS-CoV-2 (PCR) Not Detected (Not Detectd) Disposition Clinical Impression: Chest pain, Gallbladder polyp Disposition: ADMITTED IP TO THIS HOSP Condition: Stable Is patient prescribed a controlled substance at d/c from ED?: No Referrals: Geo Allen MD [Primary Care Provider] - 1-2 days Time of Disposition: 09:42
[2023-06-13 07:43] LABS: Basophils # (A) 0.1 k/uL (0-0.2); Basophils % (A) 1 %; Eosinophils # (A) 0.5 k/uL (0-0.7); Eosinophils % (A) 9 %; HCT 43.7 % (39.0-53.0); HGB 15.5 gm/dL (13.0-17.5); Lymphocytes # (A) 1.5 k/uL (1.0-4.8); Lymphocytes % (A) 25 %; MCH 31.4 pg (25.0-35.0); MCHC 35.4 g/dL (31.0-37.0); MCV 88.8 fL (80.0-100.0); Mean Platelet Volume 8.9; Monocytes # (A) 0.3 k/uL (0-1.0); Monocytes % (A) 5 %; Neutrophils # (A) 3.4 k/uL (1.3-7.7); Neutrophils % (A) 58 %; Platelet Count 173 k/uL (150-450); RBC 4.92 m/uL (4.30-5.90); RDW 13.6 % (11.5-15.5); WBC 5.9 k/uL (3.8-10.6)
[2023-06-13 07:53] LABS: INR 0.9 (<1.2); Prothrombin Time 9.8 sec (10.0-12.5)
[2023-06-13 07:58] LABS: ALT 56 U/L (4-49); AST 56 U/L (17-59); African American GFR (CKD) >90 (>60 ml/min/1.73 sqM); Albumin 4.5 g/dL (3.5-5.0); Alkaline Phosphatase 92 U/L (38-126); Anion Gap 8 mmol/L; Blood Urea Nitrogen 19 mg/dL (9-20); Calcium 9.4 mg/dL (8.4-10.2); Carbon Dioxide 26 mmol/L (22-30); Chloride 105 mmol/L (98-107); Glucose 121 mg/dL (74-99); Lipase 65 U/L (23-300); Magnesium 2.2 mg/dL (1.6-2.3); Non-African American GFR(CKD) >90 (>60 ml/min/1.73 sqM); Potassium 4.3 mmol/L (3.5-5.1); Sodium 139 mmol/L (137-145); Total Bilirubin 1.4 mg/dL (0.2-1.3); Total Protein 7.9 g/dL (6.3-8.2)
[2023-06-13 08:06] LABS: NT-Pro-B-Type Natriuretic Pept 52 pg/mL
--- NOTE | 2023-06-13 08:06 | XR ---
EXAMINATION TYPE: XR chest 2V DATE OF EXAM: 06/13/2023 8:00 AM CLINICAL INDICATION:Male, 53 years old with history of Chest Pain; COMPARISON: Chest radiographs from 01/31/2023 TECHNIQUE: XR chest 2V Frontal and lateral views of the chest. FINDINGS: Lungs/Pleura: There is no evidence of pleural effusion, focal consolidation, or pneumothorax. Pulmonary vascularity: Unremarkable. Heart/mediastinum: Cardiomediastinal silhouette is unremarkable. Musculoskeletal: No acute osseous pathology. IMPRESSION: No acute cardiopulmonary disease/process.
--- NOTE | 2023-06-13 09:01 | CT ---
EXAMINATION TYPE: CT angio chest CT DLP: 541.1 mGycm, Automated exposure control for dose reduction was used. DATE OF EXAM: 06/13/2023 8:34 AM COMPARISON: 06/13/2023. CLINICAL INDICATION:Male, 53 years old with history of CP/DEE pos dimer; CP/DEE pos dimer. TECHNIQUE/CONTRAST: CTA scan of the thorax is performed without and with IV Contrast, patient injected with 100 ml mL of Isovue 300, MIP images are created and reviewed these are created on a separate workstation.. FINDINGS: Pulmonary Artery: There is no evidence for a filling defect within the pulmonary vasculature to sugge st acute pulmonary embolism. The pulmonary artery is of normal size. Lungs/Pleura: No evidence of focal consolidation, pleural effusion or pneumothorax. Right lower lobe nodule measuring 7 mm. Airway: Large airways are patent. Heart: The heart is mildly enlarged for size. Mild coronary artery atherosclerosis. Vasculature: No evidence of aortic aneurysm. Mediastinum: No gross evidence of adenopathy. Musculoskeletal: No acute osseous abnormalities Soft Tissues: Unremarkable. Lower neck: No significant findings. Upper Abdomen: No significant findings. IMPRESSION: 1. No evidence of pulmonary embolism. 2. Right lower lobe pulmonary nodule measuring 7 mm unchanged from prior 07/02/2021 and likely benign. Follow up recommendations for incidental pulmonary nodules, if there are any, are per [employer] or [employer].
[2023-06-13] MEDS ORDERED: NALOXONE 0.4 MG/ML 1 ML VIAL IV PRN (09:38)
[2023-06-13] MEDS ORDERED: ONDANSETRON 4 MG/2 ML VIAL IVP PRN (09:38)
[2023-06-13] MEDS: SODIUM CHLORIDE 0.9% 1,000 ML IV SCH (10:28)
--- NOTE | 2023-06-13 13:04 | P.GSCN ---
History of Present Illness Consult date: 06/13/23 History of present illness: CHIEF COMPLAINT: Abdominal pain HISTORY OF PRESENT ILLNESS: This is a 53-year-old male who presented with abdominal pain across the upper abdomen x 2 months. He has had intermittent nausea and vomiting. Patient reports that the pain had worsened on Monday and then again yesterday and due to the increased pain came into the ER. Patient reports that the pain has been in the epigastric and right upper quadrant area and moves up into the chest. The pain becomes so severe it hurts to take a deep breaths. Patient's prior surgical history does include appendectomy. PE was ruled out on a CTA of the chest. In May 29, 2023 patient had gallbladder ultrasound that had shown gallbladder polyps measuring up to 5 mm. Findings suggestive of gallbladder wall adenomyomatosis. Family history of a mom with pancreatic cancer. PAST MEDICAL HISTORY: Hypertension, hyperlipidemia, enlarged spleen PAST SURGICAL HISTORY: Appendectomy, last EGD and colonoscopy February 2020 which revealed gastritis and colon polyps MEDICATIONS: See below ALLERGIES: See below SOCIAL HISTORY: No illicit drug use. REVIEW OF SYSTEMS: CONSTITUTIONAL: Denies fever or chills. HEENT: Denies blurred vision, vision changes, or eye pain. Denies hemoptysis CARDIOVASCULAR: Denies chest pain or pressure. RESPIRATORY: No shortness of breath. GASTROINTESTINAL: See HPI for pertinent findings HEMATOLOGIC: Denies bleeding disorders. GENITOURINARY: Denies any blood in urine or increased urinary frequency. SKIN: Denies pruitis. Denies rash. PHYSICAL EXAM: VITAL SIGNS: Reviewed GENERAL: Well-developed in no acute distress. ABDOMEN: Soft. Nondistended. Tenderness palpation right upper quadrant NEUROLOGIC: Alert and oriented. Cranial nerves II through XII grossly intact. LABORATORY DATA: WBC 5.9 Hgb 15.5 platelets 173 D-dimer 1.53 Sodium 139 potassium 4.3 creatinine 0.71 Total bili 1.5 AST 56 ALT 56 Lipase 65 Troponins negative x 2 Influenza, RSV and COVID-19 not detected EKG normal sinus rhythm IMAGING: Chest CTA negative for PE right lower lobe pulmonary nodule measuring 7 mm unchanged from prior. Chest x-ray no acute cardiopulmonary process ASSESSMENT: 1. Right upper quadrant and epigastric abdominal pain. Gallbladder ultrasound had revealed gallbladder polyps and findings suggestive of gallbladder wall adenomyomatosis 2. Cholecystitis PLAN: -Patient scheduled for laparoscopic cholecystectomy tomorrow with Dr. Donna [email or web address] after midnight -Low-fat diet for dinner tonight -Continue IV fluids -Continue pain management Physician Oracle Application Consultant note has been reviewed by physician. Signing provider agrees with the documented findings, assessment, and plan of care. Past Medical History Past Medical History: Hypertension Additional Past Medical History / Comment(s): past hx of HTN, hyperlipidemia, shoulder injury, enlarged spleen History of Any Multi-Drug Resistant Organisms: None Reported Past Surgical History: Appendectomy, Orthopedic Surgery Additional Past Surgical History / Comment(s): EGD Past Anesthesia/Blood Transfusion Reactions: No Reported Reaction Past Psychological History: No Psychological Hx Reported Smoking Status: Never smoker Past Alcohol Use History: None Reported Additional Past Alcohol Use History / Comment(s): smokes 1/2 ppd on and off from age 14 Past Drug Use History: None Reported Medications and Allergies Home Medications Medication Instructions Recorded Confirmed Type Rosuvastatin [Crestor] 10 mg PO DAILY 07/03/22 06/13/23 History amLODIPine [Norvasc] 5 mg PO DAILY 07/03/22 06/13/23 History lisinopriL [Zestril] 20 mg PO DAILY 07/03/22 06/13/23 History Metoprolol Succinate (ER) [Toprol 25 mg PO DAILY #30 tab 07/04/22 06/13/23 Rx XL] Allergies Allergy/AdvReac Type Severity Reaction Status Date / Time erythromycin base Allergy throat Verified 06/13/23 10:25 Swelling Surgical - Exam Vital Signs Temp Pulse Resp BP Pulse Ox 98.7 F 73 16 161/88 98 06/13/23 07:18 06/13/23 07:18 06/13/23 07:18 06/13/23 07:18 06/13/23 07:18 Results - Labs 06/13/23 07:31 06/13/23 07:31 Abnormal Lab Results - Last 24 Hours (Table) 06/13/23 06/13/23 Range/Units 07:31 07:31 PT 9.8 L (10.0-12.5) sec D-Dimer 1.53 H (<0.60) mg/L FEU Glucose 121 H (74-99) mg/dL Total Bilirubin 1.4 H (0.2-1.3) mg/dL ALT 56 H (4-49) U/L Diabetes panel 06/13/23 Range/Units 07:31 Sodium 139 (137-145) mmol/L Potassium 4.3 (3.5-5.1) mmol/L Chloride 105 (98-107) mmol/L Carbon Dioxide 26 (22-30) mmol/L BUN 19 (9-20) mg/dL Creatinine 0.71 (0.66-1.25) mg/dL Glucose 121 H (74-99) mg/dL Calcium 9.4 (8.4-10.2) mg/dL AST 56 (17-59) U/L ALT 56 H (4-49) U/L Alkaline Phosphatase 92 (38-126) U/L Total Protein 7.9 (6.3-8.2) g/dL Albumin 4.5 (3.5-5.0) g/dL Calcium panel 06/13/23 Range/Units 07:31 Calcium 9.4 (8.4-10.2) mg/dL Albumin 4.5 (3.5-5.0) g/dL Pituitary panel 06/13/23 Range/Units 07:31 Sodium 139 (137-145) mmol/L Potassium 4.3 (3.5-5.1) mmol/L Chloride 105 (98-107) mmol/L Carbon Dioxide 26 (22-30) mmol/L BUN 19 (9-20) mg/dL Creatinine 0.71 (0.66-1.25) mg/dL Glucose 121 H (74-99) mg/dL Calcium 9.4 (8.4-10.2) mg/dL Adrenal panel 06/13/23 Range/Units 07:31 Sodium 139 (137-145) mmol/L Potassium 4.3 (3.5-5.1) mmol/L Chloride 105 (98-107) mmol/L Carbon Dioxide 26 (22-30) mmol/L BUN 19 (9-20) mg/dL Creatinine 0.71 (0.66-1.25) mg/dL Glucose 121 H (74-99) mg/dL Calcium 9.4 (8.4-10.2) mg/dL Total Bilirubin 1.4 H (0.2-1.3) mg/dL AST 56 (17-59) U/L ALT 56 H (4-49) U/L Alkaline Phosphatase 92 (38-126) U/L Total Protein 7.9 (6.3-8.2) g/dL Albumin 4.5 (3.5-5.0) g/dL
[2023-06-14 06:27] LABS: Basophils % (A) 1 %; Eosinophils # (A) 0.5 k/uL (0-0.7); Eosinophils % (A) 9 %; HCT 44.1 % (39.0-53.0); HGB 14.8 gm/dL (13.0-17.5); Lymphocytes # (A) 1.3 k/uL (1.0-4.8); Lymphocytes % (A) 25 %; MCH 31.1 pg (25.0-35.0); MCHC 33.6 g/dL (31.0-37.0); MCV 92.4 fL (80.0-100.0); Mean Platelet Volume 8.6; Monocytes # (A) 0.3 k/uL (0-1.0); Monocytes % (A) 5 %; Neutrophils # (A) 3.1 k/uL (1.3-7.7); Neutrophils % (A) 59 %; Platelet Count 146 k/uL (150-450); RBC 4.77 m/uL (4.30-5.90); RDW 13.3 % (11.5-15.5); WBC 5.3 k/uL (3.8-10.6)
[2023-06-14 06:38] LABS: ALT 58 U/L (4-49); AST 56 U/L (17-59); African American GFR (CKD) >90 (>60 ml/min/1.73 sqM); Albumin 4.2 g/dL (3.5-5.0); Albumin/Globulin Ratio 1.4; Alkaline Phosphatase 90 U/L (38-126); Anion Gap 7 mmol/L; Blood Urea Nitrogen 16 mg/dL (9-20); Calcium 9.1 mg/dL (8.4-10.2); Carbon Dioxide 24 mmol/L (22-30); Chloride 109 mmol/L (98-107); Globulin 3.1 g/dL; Glucose 112 mg/dL (74-99); Non-African American GFR(CKD) >90 (>60 ml/min/1.73 sqM); Potassium 4.5 mmol/L (3.5-5.1); Sodium 140 mmol/L (137-145); Total Bilirubin 1.2 mg/dL (0.2-1.3); Total Protein 7.3 g/dL (6.3-8.2)
--- NOTE | 2023-06-14 08:29 | P.HPIM ---
History of Present Illness H&P Date: 06/14/23 Chief Complaint: Abdominal pain with chest pain Patient is a 53-year-old white male with known history of hypertension hyperlipidemia who has been being worked up for right upper quadrant pain. Ultrasound did show gallbladder issue and now he is admitted for appropriate suzette atment. However, he is also complaining of significant chest pain. It seemed to be mainly with diaphragmatic excursion. However given his risk factors, we went ahead and admitted him for rule out myocardial infarction. No fever or chills. No some nausea no diaphoresis no radiation to the arm or jaw of chest pain. Review of Systems Constitutional: Denies chills, Denies fever Eyes: denies blurred vision, denies pain Ears, nose, mouth and throat: Denies headache, Denies sore throat Cardiovascular: Denies chest pain, Denies shortness of breath Respiratory: Denies cough Gastrointestinal: Denies abdominal pain, Denies diarrhea, Denies nausea, Denies vomiting Past Medical History Past Medical History: Hypertension Additional Past Medical History / Comment(s): past hx of HTN, hyperlipidemia, shoulder injury, enlarged spleen History of Any Multi-Drug Resistant Organisms: None Reported Past Surgical History: Appendectomy, Orthopedic Surgery Additional Past Surgical History / Comment(s): EGD Past Anesthesia/Blood Transfusion Reactions: No Reported Reaction Past Psychological History: No Psychological Hx Reported Smoking Status: Never smoker Past Alcohol Use History: None Reported Additional Past Alcohol Use History / Comment(s): smokes 1/2 ppd on and off from age 14 Past Drug Use History: None Reported Medications and Allergies Home Medications Medication Instructions Recorded Confirmed Type RX: Rosuvastatin [Crestor] 10 mg PO DAILY 07/03/22 06/13/23 History RX: amLODIPine [Norvasc] 5 mg PO DAILY 07/03/22 06/13/23 History RX: lisinopriL [Zestril] 20 mg PO DAILY 07/03/22 06/13/23 History RX: Metoprolol Succinate (ER) 25 mg PO DAILY #30 tab 07/04/22 06/13/23 Rx [Toprol XL] Allergies Allergy/AdvReac Type Severity Reaction Status Date / Time erythromycin base Allergy throat Verified 06/13/23 10:25 Swelling Physical Exam Vitals: Vital Signs Temp Pulse Pulse Resp BP BP Pulse Ox 06/14/23 01:15 98.2 F 64 15 122/72 97 02/06/24 19:16 66 142/84 96 06/13/23 18:44 98.0 F 72 16 163/94 98 06/13/23 18:15 66 18 125/60 95 06/13/23 14:15 98.2 F 69 16 126/82 97 06/13/23 11:00 65 18 140/91 95 06/13/23 10:00 68 18 142/92 98 Intake and Output 06/13/23 06/14/23 06/14/23 22:59 06:59 14:59 Other: # Voids 1 2 - Constitutional General appearance: cooperative, no disheveled, no acute distress - EENT Eyes: abnormal pupil - Neck Neck: no lymphadenopathy - Respiratory Respiratory: bilateral: diminished - Cardiovascular Rhythm: regular Heart sounds: normal: S1, S2 Abnormal Heart Sounds: no S3 Gallop - Gastrointestinal General gastrointestinal: soft, no tenderness - Integumentary Integumentary: no cellulitis - Psychiatric Psychiatric: A&O x's 3, appropriate affect Results CBC & Chem 7: 06/14/23 05:48 06/14/23 05:48 Labs: Abnormal Lab Results - Last 24 Hours (Table) 06/14/23 06/14/23 Range/Units 05:48 05:48 Plt Count 146 L (150-450) k/uL Chloride 109 H (98-107) mmol/L Glucose 112 H (74-99) mg/dL ALT 58 H (4-49) U/L Assessment and Plan (1) Chest pain Current Visit: Yes Status: Acute Code(s): R07.9 - CHEST PAIN, UNSPECIFIED SNOMED Code(s): 83289644 (2) Gallbladder polyp Current Visit: Yes Status: Acute Code(s): K82.4 - CHOLESTEROLOSIS OF GALLBLADDER SNOMED Code(s): 333066375 (3) Hyperlipidemia Current Visit: No Status: Acute Code(s): E78.5 - HYPERLIPIDEMIA, UNSPECIFIED SNOMED Code(s): 24688972 (4) Hypertension Current Visit: No Status: Acute Code(s): I10 - ESSENTIAL (PRIMARY) HYPERTENSION SNOMED Code(s): 22297020 Plan: The patient is scheduled for appropriate cholecystectomy. Reconcile medications. No significant enzymatic excursion for cardiac enzymes. The patient is a full code. Time with Patient: Greater than 30
[2023-06-14] MEDS: METOPROLOL SUCCINATE (ER) 25 MG TAB.ER.24H PO SCH (09:08)
[2023-06-14] MEDS: PANTOPRAZOLE 40 MG/10 ML VIAL IV SCH (09:08)
[2023-06-14] MEDS: LACTATED RINGERS 1,000 ML IV ONE (10:21)
[2023-06-14] MEDS: ONDANSETRON 4 MG/2 ML VIAL IVP ONE (10:36)
[2023-06-14] MEDS: DEXAMETHASONE SOD PHOSPHATE 4 MG/ML 1 ML VIAL IVP ONE (10:37)
[2023-06-14] MEDS: HEPARIN SODIUM,PORCINE 5,000 UNIT/ML 1 ML VIAL SQ ONE (10:40)
[2023-06-14] MEDS ORDERED: PHENYLEPHRINE-0.9% NACL SYG 1,000 MCG/10 ML SYRINGE ONE (11:20)
[2023-06-14] MEDS ORDERED: LIDOCAINE 1% INJ 10MG/ML (20 ML MDV) ONE (11:20)
[2023-06-14] MEDS ORDERED: fentaNYL (PF) 50 MCG/ML 2 ML AMP ONE (11:20)
[2023-06-14] MEDS ORDERED: SUCCINYLCHOLINE CHLORIDE 200 MG/10 ML VIAL IV ONE (11:20)
[2023-06-14] MEDS ORDERED: ePHEDrine 50 MG/ML 1 ML VIAL ONE (11:20)
[2023-06-14] MEDS ORDERED: ROCURONIUM 10 MG/ML (5 ML VIAL) IV ONE (11:20)
[2023-06-14] MEDS ORDERED: NEOSTIGMINE 1 MG/ML 10 ML VIAL ONE (11:20)
[2023-06-14] MEDS ORDERED: PROPOFOL 10 MG/ML 20 ML VIAL IV ONE (11:20)
[2023-06-14] MEDS ORDERED: KETOROLAC 15 MG/ML 1 ML VIAL ONE (11:20)
[2023-06-14] MEDS ORDERED: GLYCOPYRROLATE 0.2 MG/ML 2 ML VIAL ONE (11:20)
[2023-06-14] MEDS ORDERED: KETAMINE HCL IN 0.9 % NACL 50 MG/5 ML SYRINGE ONE (11:20)
[2023-06-14] MEDS ORDERED: MIDAZOLAM 2 MG/2 ML VIAL ONE (11:20)
[2023-06-14] MEDS: SODIUM CHLORIDE 0.9% 50 ML with ceFAZolin 2,000 MG IV ONE (11:25)
[2023-06-14] MEDS: BUPIVACAINE (PF) 0.25% 30 ML VIAL SQ ONE (12:05)
--- NOTE | 2023-06-14 12:29 | P.OP ---
Date of Procedure: 06/14/23 Preoperative Diagnosis: Cholecystitis Postoperative Diagnosis: Cholecystitis Procedure(s) Performed: Laparoscopic cholecystectomy Anesthesia: MONICA Surgeon: Jasper Thompson Estimated Blood Loss (ml): 5 Pathology: other (Gallbladder) Condition: stable Disposition: PACU Description of Procedure: The patient was placed on the operating table. The patient received a general endotracheal tube anesthesia. The patients abdomen was prepped and draped in the usual sterile fashion. Through an infraumbilical stab incision, the fascia of the anterior abdominal wall was grasped with a pair of Kochers and then the Veress needle was placed in the peritoneal cavity. Position of the Veress needle was confirmed with positive drop test. The abdomen was then insufflated. After adequate insufflation, the 10 mm trocar was placed in the peritoneal cavity. Following this the laparoscope was placed in the peritoneal cavity. The patient was placed in the head-up, right side up position and then a 5 mm trocar was placed in the right lateral and right subcostal position under direct visualization. A 8 mm trocar was placed in the epigastric position. The gallbladder was grasped in the fundus and infundibulum. Traction on the gallbladder was placed in the lateral and the cephalad positions. The triangle of Calot was visualized.. The cystic duct was bluntly dissected until the union of the cystic duct and common bile duct was seen. A critical view of safety was achieved. The cystic duct was then divided and sealed with the Harmonic scissors. A PDS Endoloop was then placed throughout the cystic duct stump. The cystic artery divided and sealed with the Harmonic scissors. The gallbladder was then removed from the liver bed using Harmonic scissors. The gallbladder was then extracted through the epigastric port site. Operative field was checked for any bleeding spots and Harmonic scissors was used to coagulate the liver bed. The abdomen was irrigated. The trocars were removed. The skin was closed using interrupted 3-0 Vicryl suture. Dermabond dressing were applied. The patient tolerated the procedure well.
[2023-06-14] MEDS: HEPARIN SODIUM,PORCINE 5,000 UNIT/ML 1 ML VIAL SQ STA (13:40)
[2023-06-14] MEDS: HYDROmorphone 0.5 MG/0.5 ML SYRINGE IVP PRN (13:45)
[2023-06-14] MEDS: lisinopriL 20 MG TAB PO SCH (14:03)
[2023-06-14] MEDS: ATORVASTATIN 20 MG TAB PO SCH (16:08)
[2023-06-14] MEDS: amLODIPine 5 MG TAB PO SCH (16:56)
[2023-06-14] MEDS: KETOROLAC 15 MG/ML 1 ML VIAL IVP PRN (17:27)
[2023-06-14] MEDS: HYDROmorphone 1 MG/ML 1 ML SYRINGE IVP PRN (19:31)
[2023-06-15 02:32] VITALS: RESP 16
[2023-06-15 07:18] VITALS: BP 151/83; PULSE 60; TEMP 97.9
[2023-06-15] MEDS ORDERED: HYDROcodone/APAP 5-325MG 1 EACH TAB PO PRN (10:11)
--- NOTE | 2023-06-15 13:27 | P.PN ---
Subjective Progress Note Date: 06/15/23 CHIEF COMPLAINT: Cholecystitis HISTORY OF PRESENT ILLNESS: Patient postop day #1 status post laparoscopic cholecystectomy. Patient is tolerating diet. Pain is controlled. He is having flatus and bowel movement. Afebrile. He has been up and ambulating. PHYSICAL EXAM: VITAL SIGNS: Reviewed. GENERAL: Well-developed in no acute distress. ABDOMEN: Soft. Nondistended. Nontender. Incision sites clean dry and intact NEUROLOGIC: Alert and oriented. Cranial nerves II through XII grossly intact. ASSESSMENT: 1. Cholecystitis status post laparoscopic cholecystectomy PLAN: -Patient is stable for discharge from surgical standpoint -Continue pain management -Encourage patient to ambulate Physician Boiler Room Operator note has been reviewed by physician. Signing provider agrees with the documented findings, assessment, and plan of care. Objective - Vital Signs Vital signs: Vital Signs Temp 97.9 F 06/15/23 07:00 Pulse 60 06/15/23 07:00 Resp 16 06/15/23 07:00 BP 151/83 06/15/23 07:00 Pulse Ox 98 06/15/23 07:00 FiO2 Intake & Output 06/14/23 06/15/23 06/15/23 18:59 06:59 18:59 Intake Total 1440 Output Total 5 Balance 1435 Intake: IV 850 Oral 590 Output: Estimated Blood Loss 5 Other: # Voids 3 2 # Bowel Movements 1 - Labs CBC & Chem 7: 06/14/23 05:48 06/14/23 05:48
--- NOTE | 2023-06-16 06:32 | P.DS ---
Providers Date of admission: 06/13/23 09:40 Expected date of discharge: 06/15/23 Attending physician: Geo Allen Consults: 06/13/23 09:38 Consult Physician Routine Consulting Provider: Jasper Thompson Consult Reason/Comments: Epigastric abdominal pain, gallbladder polyps Do you want consulting provider notified?: Yes Primary care physician: Geo Allen Hospital Course: Final diagnosis Chest pain, ruled out ACS, troponins x 3 were negative Hyperlipidemia Hypertension Gallbladder polyp, status post laparoscopic cholecystectomy, postop day 1 Obesity with a BMI of 34.4 GI prophylaxis DVT prophylaxis Full code Discharge disposition Patient is being discharged in a stable condition with guarded prognosis to home. Patient will follow-up with Dr. Allen in the outpatient setting upon discharge. Patient is to follow-up with general surgery outpatient as scheduled. Total time taken is greater than 35 minutes. Hospital course This is a 53-year-old male who was recently admitted with abdominal pain as well as epigastric chest pain being closely monitored. Troponins were negative x 3 patient was evaluated by general surgery as there was noted gallbladder polyp and patient underwent laparoscopic cholecystectomy. Patient is up and walking and tolerating regular diet. Patient reports to passing gas with no bowel movement as of yet. Patient denies any further chest pain or epigastric abdominal pain. Patient has been cleared by surgery for discharge and patient would like to go home. Patient instructed to follow-up with primary care provider Dr. Allen this week. Currently no reports of chest pain, shortness of breath, or palpitations. Patient is afebrile. No reports of nausea or vomiting and patient is tolerating diet. Patient will be discharged home today. Physical exam: Gen: This is a 53-year-old male who is awake, alert and oriented x 3, well- developed, well-nourished, obese HEENT: Head is atraumatic, normocephalic. Pupils equal, round. Sclerae is anicteric. NECK: Supple. No JVD. No lymphadenopathy. No thyromegaly. LUNGS: Clear to auscultation. No wheezes or rhonchi. No intercostal retractions. HEART: Regular rate and rhythm. No murmur. ABDOMEN: Soft. Bowel sounds are present. No masses. Mild tenderness at the surgical site with no drainage or swelling noted. EXTREMITIES: No pedal edema. No calf tenderness. NEUROLOGICAL: Patient is awake, alert and oriented x3. Cranial nerves 2 through 12 are grossly intact. Please refer to medication reconciliation sheet for a list of medications. The impression and plan of care has been dictated by Yu Villegas, Nurse Practitioner as directed. Dr. Ortega MD I have performed a history and examination and MDM of this patient, discussed the same with the dictator, and agree with the dictator's assessment and plan as written ,documented as a scribe. Based on total visit time, I have performed more than 50% of the visit. Patient Condition at Discharge: Stable Plan - Discharge Summary New Discharge Prescriptions: New HYDROcodone/APAP 5-325MG [[place] 5-325] 1 tab PO Q6HR PRN 3 Days #12 tab PRN Reason: Pain Ibuprofen [Motrin] 600 mg PO Q8HR PRN #30 tab PRN Reason: Pain Continue lisinopriL [Zestril] 20 mg PO DAILY amLODIPine [Norvasc] 5 mg PO DAILY Metoprolol Succinate (ER) [Toprol XL] 25 mg PO DAILY #30 tab Rosuvastatin [Crestor] 10 mg PO DAILY Discharge Medication List Rosuvastatin [Crestor] 10 mg PO DAILY 07/03/22 [History] amLODIPine [Norvasc] 5 mg PO DAILY 07/03/22 [History] lisinopriL [Zestril] 20 mg PO DAILY 07/03/22 [History] Metoprolol Succinate (ER) [Toprol XL] 25 mg PO DAILY #30 tab 07/04/22 [Rx] HYDROcodone/APAP 5-325MG [[place] 5-325] 1 tab PO Q6HR PRN 3 Days #12 tab 06/15/23 [Rx] Ibuprofen [Motrin] 600 mg PO Q8HR PRN #30 tab 06/15/23 [Rx] Follow up Appointment(s)/Referral(s): Geo Allen MD [Primary Care Provider] - 1-2 days Jasper Thompson MD [STAFF PHYSICIAN] - 06/22/23 3:00 pm Patient Instructions/Handouts: *Surgery [facility] - Laparoscopic Cholecystectomy Discharge Instructions, Low Fat Diet (DC) Activity/Diet/Wound Care/Special Instructions: Activity limited until follow-up Follow-up with primary care provider on discharge Follow-up with general surgery outpatient Continue current diet Continue taking medications as prescribed Discharge Disposition: HOME SELF-CARE
== END 2023-06-15 12:44 | disposition home or self-care (01) ==
LOC: EC 07:13 → 6NMEDSUR 09:40
PROVIDERS: ADMIT Family Medicine; ATTEND Family Medicine
DX: K82.4 Cholesterolosis of gallbladder (principal); R07.89 Other chest pain; I10 Essential (primary) hypertension; E78.5 Hyperlipidemia, unspecified; R79.89 Other specified abnormal findings of blood chemistry; E66.9 Obesity, unspecified; Z68.34 Body mass index [BMI] 34.0-34.9, adult; Z11.52 Encounter for screening for COVID-19; Z11.59 Encounter for screening for other viral diseases; Z79.899 Other long term (current) drug therapy; Z88.1 Allergy status to other antibiotic agents; Z90.49 Acquired absence of other specified parts of digestive tract; Z80.0 Family history of malignant neoplasm of digestive organs
CPT/HCPCS: 96374; 99285; 36415; 93005; 85379; 88304; 83880; 80053 ×2; 83690; 83735; 84484; 85025 ×2; 85610; 85730; 87636; 71046; 71275; 47562; G0378 ×3; J2250; J0330; J1644; J1100; J2710; J2405; J0690; J2001; J3010; J1170 ×3; J1885 ×2; J2704; C9113 ×2; Q9967; J2371; J0665

== ENCOUNTER 2024-06-02 05:45 | Emergency (ER) | payer BC, OTHER ==
[2024-06-02 05:53] VITALS: RESP 18; TEMP 98.7
[2024-06-02] MEDS ORDERED: IPRATROPIUM-ALBUTEROL 3 ML NEB INHALATION STA (06:09)
--- NOTE | 2024-06-02 06:12 | ED ---
ENT HPI - General Chief complaint: ENT Stated complaint: Chest pressure, throat pain Time Seen by Provider: 06/02/24 06:10 Source: patient, family, RN notes reviewed Mode of arrival: ambulatory - History of Present Illness Initial comments: 54-year-old male presented the ER for evaluation of cough, congestion and sore throat. He states this been ongoing for the past 3 to 4 days. Patient also reports fevers and chills at home. Patient reports he was started on amoxicillin by PCP with no improvement of his symptoms. He has been taking [id number] ibuprofen with minimal symptom control. Patient admits to nausea and shortness of breath with coughing. No current chest pain, abdominal pain, constipation/diarrhea, urinary complaints or peripheral edema. No other complaints. - Related Data Home Medications Medication Instructions Recorded Confirmed Rosuvastatin [Crestor] 10 mg PO DAILY 07/03/22 06/13/23 amLODIPine [Norvasc] 5 mg PO DAILY 07/03/22 06/13/23 lisinopriL [Zestril] 20 mg PO DAILY 07/03/22 06/13/23 Previous Rx's Medication Instructions Recorded Metoprolol Succinate (ER) [Toprol 25 mg PO DAILY #30 tab 07/04/22 XL] HYDROcodone/APAP 5-325MG [Farley 1 tab PO Q6HR PRN 3 Days #12 tab 06/15/23 5-325] Ibuprofen [Motrin] 600 mg PO Q8HR PRN #30 tab 06/15/23 methylPREDNISolone [Medrol Dose 0 mg PO DIRECTED #1 packet 06/02/24 Pack] Allergies Allergy/AdvReac Type Severity Reaction Status Date / Time erythromycin base Allergy throat Verified 06/13/23 10:25 Swelling shellfish derived [Shellfish] Allergy Rash/Hives Verified 06/02/24 05:53 Review of Systems ROS Statement: Those systems with pertinent positive or pertinent negative responses have been documented in the HPI. ROS Other: All systems not noted in ROS Statement are negative. Past Medical History Past Medical History: Hyperlipidemia, Hypertension Additional Past Medical History / Comment(s): past hx of HTN, hyperlipidemia, shoulder injury, enlarged spleen History of Any Multi-Drug Resistant Organisms: None Reported Past Surgical History: Appendectomy, Cholecystectomy, Orthopedic Surgery Additional Past Surgical History / Comment(s): EGD Past Anesthesia/Blood Transfusion Reactions: No Reported Reaction Past Psychological History: No Psychological Hx Reported Smoking Status: Never smoker Past Alcohol Use History: Occasional Past Drug Use History: None Reported General Exam General appearance: alert, in no apparent distress ENT exam: Present: normal exam, normal oropharynx (Mild erythema), mucous membranes moist, TM's normal bilaterally Neck exam: Present: normal inspection. Absent: tenderness, meningismus, lymphadenopathy Respiratory exam: Present: wheezes (Expiratory throughout) Cardiovascular Exam: Present: regular rate, normal rhythm, normal heart sounds. Absent: systolic murmur, diastolic murmur, rubs, gallop, clicks Extremities exam: Present: normal inspection, full ROM, normal capillary refill. Absent: tenderness, pedal edema, joint swelling, calf tenderness Neurological exam: Present: alert, oriented X3, CN II-XII intact Skin exam: Present: warm, dry, intact, normal color. Absent: rash Course Vital Signs 06/02/24 06/02/24 05:49 07:59 Temperature 98.7 F Pulse Rate 77 78 Respiratory 18 18 Rate Blood Pressure 138/88 134/77 O2 Sat by Pulse 97 98 Oximetry Medical Decision Making - Medical Decision Making Was pt. sent in by a medical professional or institution (, PA, ARCADE TECHNICIAN, urgent care, hospital, or fpc...) When possible be specific @ -No Did you speak to anyone other than the patient for history (EMS, parent, family, police, friend...)? What history was obtained from this source @ -Significant other, at bedside, aiding in HPI and past medical history. Did you review nursing and triage notes (agree or disagree)? Why? @ -I reviewed and agree with nursing and triage notes Were old charts reviewed (outside hosp., previous admission, EMS record, old EKG, old radiological studies, urgent care reports/EKG's, fpc records)? Report findings @ -No old charts were reviewed Differential Diagnosis (chest pain, altered mental status, abdominal pain women, abdominal pain men, vaginal bleeding, weakness, fever, dyspnea, syncope, headache, dizziness, GI bleed, back pain, seizure, CVA, palpatations, mental health, musculoskeletal)? @ -COVID, RSV, influenza, viral sinusitis, pneumonia, strep pharyngitis, this list is not meant to be all-inclusive EKG interpreted by me (3pts min.). @ -As above X-rays interpreted by me (1pt min.). @ -CXR interpreted by me negative for focal consolidations or pneumothorax. CT interpreted by me (1pt min.). @ -None done U/S interpreted by me (1pt. min.). @ -None done What testing was considered but not performed or refused? (CT, X-rays, U/S, labs)? Why? @ -None What meds were considered but not given or refused? Why? @ -None Did you discuss the management of the patient with other professionals (professionals i.e. , PA, ARCADE TECHNICIAN, lab, RT, psych nurse, social service coordinator, residential substance abuse counselor, teacher, corporate responsibility officer, case assembler)? Give summary @ -No Was smoking cessation discussed for >3mins.? @ -No Was critical care preformed (if so, how long)? @ -No Were there social determinants of health that impacted care today? How? (Homelessness, low income, unemployed, alcoholism, drug addiction, transportation, low edu. Level, literacy, decrease access to med. care, nursing home, rehab)? @ -No Was there de-escalation of care discussed even if they declined (Discuss DNR or withdrawal of care, Hospice)? DNR status @ -No What co-morbidities impacted this encounter? (DM, HTN, Smoking, COPD, CAD, Ca ncer, CVA, ARF, Chemo, Hep., AIDS, mental health diagnosis, sleep apnea, morbid obesity)? @ -None Was patient admitted / discharged? Hospital course, mention meds given and route, prescriptions, significant lab abnormalities, going to OR and other pertinent info. @ -Discharge. 54-year-old male presented to the ER for evaluation of cough, congestion and sore throat. Upon rooming, history and physical exam completed. Vitals within acceptable limits. Patient had no signs of acute distress nontoxic-appearing. Exam remarkable for bilateral expiratory wheezing throughout all lung [place] for which patient received DuoNeb nebulized treatment. Laboratory studies obtained remarkable for an elevated bilirubin at 2.3, AST 68, ALT 73 this is likely viral in nature as patient had mike cystectomy completed approximately 1 year ago. Patient also denying any abdominal pain. Influenza, RSV, COVID and strep negative. Upon reevaluation, patient resting comfortably in exam room no signs of acute distress. Symptoms likely viral in nature. I recommended [id number]-sth-imhhyha ibuprofen and Tylenol for symptom control outpatient. Patient prescribed Medrol Dosepak. Strict return parameters discussed. Patient discharged in stable condition with follow-up to PCP. Patient verbally expressed understanding and agreement with care plan. Case discussed with ED attending, Dr. Williamson. Undiagnosed new problem with uncertain prognosis? @ -No Drug Therapy requiring intensive monitoring for toxicity (Heparin, Nitro, Insulin, Cardizem)? @ -No Were any procedures done? @ -No Diagnosis/symptom? @ -Acute viral sinusitis Acute, or Chronic, or Acute on Chronic? @ -Acute Uncomplicated (without systemic symptoms) or Complicated (systemic symptoms)? @ -Uncomplicated Side effects of treatment? @ -No Exacerbation, Progression, or Severe Exacerbation? @ -No Poses a threat to life or bodily function? How? (Chest pain, USA, MD, pneumonia, PE, COPD, DKA, ARF, appy, cholecystitis, CVA, Diverticulitis, Homicidal, Suicidal, threat to staff... and all critical care pts) @ -No - Lab Data Result diagrams: 06/02/24 06:27 06/02/24 06:27 Lab Results 06/02/24 06/02/24 06/02/24 Range/Units 06:27 06:27 06:27 WBC 6.3 (3.8-10.6) k/uL RBC 4.80 (4.30-5.90) m/uL Hgb 15.4 (13.0-17.5) gm/dL Hct 43.2 (39.0-53.0) % MCV 90.0 (80.0-100.0) fL MCH 32.1 (25.0-35.0) pg MCHC 35.7 (31.0-37.0) g/dL RDW 13.3 (11.5-15.5) % Plt Count 186 (150-450) k/uL MPV 8.1 Neutrophils % 70 % Lymphocytes % 16 % Monocytes % 6 % Eosinophils % 6 % Basophils % 1 % Neutrophils # 4.4 (1.3-7.7) k/uL Lymphocytes # 1.0 (1.0-4.8) k/uL Monocytes # 0.4 (0-1.0) k/uL Eosinophils # 0.4 (0-0.7) k/uL Basophils # 0.0 (0-0.2) k/uL Sodium 139 (137-145) mmol/L Potassium 4.3 (3.5-5.1) mmol/L Chloride 102 (98-107) mmol/L Carbon Dioxide 27 (22-30) mmol/L Anion Gap 10 mmol/L BUN 12 (9-20) mg/dL Creatinine 0.73 (0.66-1.25) mg/dL Est GFR (CKD-EPI)AfAm >90 (>60 ml/min/1.73 sqM) Est GFR (CKD-EPI)NonAf >90 (>60 ml/min/1.73 sqM) Glucose 115 H (74-99) mg/dL Plasma Lactic Acid [place] (0.7-2.0) mmol/L Calcium 9.6 (8.4-10.2) mg/dL Total Bilirubin 2.3 H (0.2-1.3) mg/dL AST 68 H (17-59) U/L ALT 73 H (4-49) U/L Alkaline Phosphatase 126 (38-126) U/L Total Protein 7.7 (6.3-8.2) g/dL Albumin 4.5 (3.5-5.0) g/dL Influenza Type A (PCR) (Not Detectd) Influenza Type B (PCR) (Not Detectd) RSV (PCR) (Not Detectd) SARS-CoV-2 (PCR) (Not Detectd) Group A Strep (PCR) NOT DETECTED (Not Detectd) 06/02/24 06/02/24 Range/Units 06:27 06:27 WBC (3.8-10.6) k/uL RBC (4.30-5.90) m/uL Hgb (13.0-17.5) gm/dL Hct (39.0-53.0) % MCV (80.0-100.0) fL MCH (25.0-35.0) pg MCHC (31.0-37.0) g/dL RDW (11.5-15.5) % Plt Count (150-450) k/uL MPV Neutrophils % % Lymphocytes % % Monocytes % % Eosinophils % % Basophils % % Neutrophils # (1.3-7.7) k/uL Lymphocytes # (1.0-4.8) k/uL Monocytes # (0-1.0) k/uL Eosinophils # (0-0.7) k/uL Basophils # (0-0.2) k/uL Sodium (137-145) mmol/L Potassium (3.5-5.1) mmol/L Chloride (98-107) mmol/L Carbon Dioxide (22-30) mmol/L Anion Gap mmol/L BUN (9-20) mg/dL Creatinine (0.66-1.25) mg/dL Est GFR (CKD-EPI)AfAm (>60 ml/min/1.73 sqM) Est GFR (CKD-EPI)NonAf (>60 ml/min/1.73 sqM) Glucose (74-99) mg/dL Plasma Lactic Acid [place] 1.1 (0.7-2.0) mmol/L Calcium (8.4-10.2) mg/dL Total Bilirubin (0.2-1.3) mg/dL AST (17-59) U/L ALT (4-49) U/L Alkaline Phosphatase (38-126) U/L Total Protein (6.3-8.2) g/dL Albumin (3.5-5.0) g/dL Influenza Type A (PCR) Not Detected (Not Detectd) Influenza Type B (PCR) Not Detected (Not Detectd) RSV (PCR) Not Detected (Not Detectd) SARS-CoV-2 (PCR) Not Detected (Not Detectd) Group A Strep (PCR) (Not Detectd) - EKG Data -: EKG Interpreted by Me EKG Comments: EKG taken at 6: 05 showing a sinus rhythm. No ST segment elevations or depressions. No T wave abnormalities. Ventricular rate 74, OH interval 160, QRS duration 104, QT/QTc 378/405. - Radiology Data Radiology results: report reviewed, image reviewed Disposition Clinical Impression: Acute viral sinusitis Disposition: HOME SELF-CARE Condition: Stable Instructions (If sedation given, give patient instructions): Viral Syndrome (ED) Additional Instructions: Continue with [id number] ibuprofen and Tylenol for symptom control. Follow-up with PCP. Return to the ER for any new or worsening concerns Prescriptions: methylPREDNISolone [Medrol Dose Pack] 0 mg PO DIRECTED #1 packet Is patient prescribed a controlled substance at d/c from ED?: No Referrals: Geo Allen MD [Primary Care Provider] - 1-2 days Time of Disposition: 07:40
[2024-06-02 06:47] LABS: Basophils % (A) 1 %; Eosinophils # (A) 0.4 k/uL (0-0.7); Eosinophils % (A) 6 %; HCT 43.2 % (39.0-53.0); HGB 15.4 gm/dL (13.0-17.5); Lymphocytes % (A) 16 %; MCH 32.1 pg (25.0-35.0); MCHC 35.7 g/dL (31.0-37.0); Mean Platelet Volume 8.1; Monocytes # (A) 0.4 k/uL (0-1.0); Monocytes % (A) 6 %; Neutrophils # (A) 4.4 k/uL (1.3-7.7); Neutrophils % (A) 70 %; Platelet Count 186 k/uL (150-450); RDW 13.3 % (11.5-15.5); WBC 6.3 k/uL (3.8-10.6)
[2024-06-02 06:57] LABS: ALT 73 U/L (4-49); AST 68 U/L (17-59); African American GFR (CKD) >90 (>60 ml/min/1.73 sqM); Albumin 4.5 g/dL (3.5-5.0); Alkaline Phosphatase 126 U/L (38-126); Anion Gap 10 mmol/L; Blood Urea Nitrogen 12 mg/dL (9-20); Calcium 9.6 mg/dL (8.4-10.2); Carbon Dioxide 27 mmol/L (22-30); Chloride 102 mmol/L (98-107); Glucose 115 mg/dL (74-99); Non-African American GFR(CKD) >90 (>60 ml/min/1.73 sqM); Potassium 4.3 mmol/L (3.5-5.1); Sodium 139 mmol/L (137-145); Total Bilirubin 2.3 mg/dL (0.2-1.3); Total Protein 7.7 g/dL (6.3-8.2)
--- NOTE | 2024-06-02 07:10 | XR ---
Chest, 2 view. HISTORY: Wheezing COMPARISON: 06/13/2023 TECHNIQUE: PA and lateral views the chest are obtained. FINDINGS: The lungs are clear and there is no consolidative or interstitial opacity. There is no pleural effusion or pneumothorax. The heart, pulmonary vasculature, mediastinum and candice appear normal. The osseous structures are intact. IMPRESSION: No significant abnormality seen. No acute cardiopulmonary disease. [facility], , 06/02/2024 7:07 AM
[2024-06-02 07:14] LABS: Influenza A Not Detected (Not Detectd); Influenza B Not Detected (Not Detectd); RSV Not Detected (Not Detectd)
[2024-06-02 08:00] VITALS: BP 134/77; PULSE 78
== END 2024-06-02 08:00 | disposition home or self-care (01) ==
LOC: EC 05:45
DX: J01.90 Acute sinusitis, unspecified (principal); B97.89 Other viral agents as the cause of diseases classified elsewhere; Z91.013 Allergy to seafood; Z88.1 Allergy status to other antibiotic agents
CPT/HCPCS: 36415; 71046; 80053; 83605; 85025; 87636; 87651; 93005; 99284